=== PATIENT | male | born 1950 | race Caucasian/White ===

== ENCOUNTER → 2018-07-04 08:13 | Outpatient (CLI) | payer MEDICARE, SELFPAY ==
[2015-07-01 06:20] VITALS: BMI 24.8
[2018-07-04 10:37] LABS: Anion Gap 6 (5-15); BUN 13 mg/dL (7-18); BUN/Creat Ratio 16.5 RATIO (10-20); Calcium,Total 8.7 mg/dL (8.5-10.1); Chloride 110 mmol/L (98-107); Cholesterol 160 mg/dL (200); Creatinine, Serum 0.79 mg/dL (0.70-1.30); EST Glomerular Filtration Rate 104 mL/min (>60); Est Glom Filt Rate - Afr Amer 126 mL/min (>60); Glucose 96 mg/dL (74-106); High Density Lipoprotein 70 mg/dL; PSA,Total - Annual Screen 0.15 ng/mL (0.00-4.00); Potassium 4.1 mmol/L (3.5-5.1); Sodium Level 142 mmol/L (136-145); Triglycerides 63 mg/dL; Very Low Density Lipoprotein 13 mg/dL (5-40)
[2018-07-04 10:46] LABS: Vitamin D,25 Hydroxy 28.9 ng/mL (29.95-100.01)
== END ==
PROVIDERS: Family Provider Family Medicine; PCP Family Medicine; Visit Provider Family Medicine
DX: Z00.00 Encounter for general adult medical examination without abnormal findings (principal)
CPT/HCPCS: 36415; 80048; 80061; 82306; 84153; G0103

== ENCOUNTER → 2018-07-11 08:37 | Outpatient (CLI) | payer MEDICARE, SELFPAY ==
--- NOTE | 2018-07-11 08:44 | RAD_ITS ---
STUDY: X-RAY - LEFT SHOULDER REASON FOR EXAM: Male, 67 years old. Chronic pain. TECHNIQUE: 4 view(s) of the shoulder. COMPARISON: None. FINDINGS: There is moderate degenerative arthrosis of the glenohumeral articulation. There is degenerative arthrosis of the acromioclavicular joint without inferior osseous spur formation. Normal acromion. There is demineralization of the humerus and visualized osseous structures. The soft tissue structures are unremarkable. Normal visualized pulmonary apex. RAD/Shoulder min 2 Views IMPRESSION: Moderate glenohumeral joint arthrosis with arthrosis of the AC joint, otherwise no evidence of acute osseous abnormality. Electronically Signed: Tan Ruiz DO at 9:28 EST , Service support ,
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
== END ==
PROVIDERS: Family Provider Family Medicine; PCP Family Medicine; Referring Provider Family Medicine; Visit Provider Family Medicine
DX: M25.512 Pain in left shoulder (principal)
CPT/HCPCS: 73030

== ENCOUNTER → 2018-09-19 08:44 | Outpatient (CLI) | payer MEDICARE, SELFPAY ==
[2018-09-19 10:04] LABS: Absolute Lymphocyte Count 1.11 X10^3/ul (0.83-4.51); Absolute Neutrophil Count 2.5 X10^3/uL (2.0-7.7); Basophil# 0.03 X10^3/uL; Basophil% 0.7 % (0-1); Eosinophils% 2.4 % (0-5); Hematocrit 45.3 % (40-54); Hemoglobin 15.4 g/dl (13.0-16.5); Lymphocyte # 1.11 X10^3/ul (4.0); Lymphocyte % 26.5 % (19-41); Mean Corpuscular Hgb 33.4 pg (27.0-32.0); Mean Corpuscular Volume 98.3 fL (80-94); Mean Platelet Vol. 11.3 fl (6.2-12.0); Monocyte# 0.49 X10^3/uL; Monocyte% 11.7 % (0-10); Neutrophil # 2.46 X10^3/uL (2.7-7.7); Neutrophil % 58.7 % (47-70); Platelet Count 181 K/mm3 (150-450); RBC Distribution Width CV 14.4 % (11.6-14.6); RBC Distribution Width SD 51.1 fl (35.1-43.9); Red Blood Count 4.61 M/mm3 (4.6-6.2); White Blood Count 4.2 K/mm3 (4.4-11.0)
[2018-09-19 10:05] LABS: POSITIVE COUNT NO; POSITIVE DIFFERENTIAL NO; POSITIVE MORPHOLOGY NO
[2018-09-19 10:23] LABS: Anion Gap 9 (5-15); BUN 17 mg/dL (7-18); BUN/Creat Ratio 23.2 RATIO (10-20); Calcium,Total 8.8 mg/dL (8.5-10.1); Chloride 110 mmol/L (98-107); Cholesterol 163 mg/dL (200); Creatinine, Serum 0.73 mg/dL (0.70-1.30); EST Glomerular Filtration Rate 114 mL/min (>60); Est Glom Filt Rate - Afr Amer 137 mL/min (>60); Glucose 105 mg/dL (74-106); High Density Lipoprotein 75 mg/dL; Potassium 4.4 mmol/L (3.5-5.1); Sodium Level 144 mmol/L (136-145); Triglycerides 51 mg/dL; Very Low Density Lipoprotein 10 mg/dL (5-40)
== END ==
PROVIDERS: Family Provider Family Medicine; PCP Family Medicine; Referring Provider Family Medicine; Visit Provider Family Medicine
DX: Z00.00 Encounter for general adult medical examination without abnormal findings (principal)
CPT/HCPCS: 36415; 80048; 80061; 85025

== ENCOUNTER 2018-10-01 07:19 | Inpatient (IN) | payer MEDICARE, SELFPAY ==
[2015-07-01 06:20] VITALS: BMI 24.8
[2018-09-22 13:22] VITALS: BP 156/90; PULSE 65; RESP 16; TEMP 36.9; O2SAT 98; BMI 25.8
[2018-09-22 14:28] LABS: AST(SGOT) 31 U/L (15-37); Alanine Aminotransfer ALT/SGPT 33 U/L (16-61); Albumin, Serum 4.1 g/dL (3.2-5.0); Alkaline Phosphatase 59 U/L (45-117); Bilirubin, Direct 0.16 mg/dL (0.00-0.30); Globulin 4.1 g/dL (2.2-4.2); Protein, Total 8.2 g/dL (6.4-8.2)
[2018-09-22 14:56] LABS: Prothrombin Time (Protime)PT. 13.2 SECONDS (11.7-14.9)
[2018-09-22 14:57] LABS: Partial Thromboplast Time 32.5 Seconds (24.1-36.2)
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
[2018-10-01] VITALS (11 sets, daily range): BP systolic 110–141; BP diastolic 59–81; PULSE 52–68; RESP 14–18; TEMP 36.3–36.7; O2SAT 92–99; BMI 25.8
--- NOTE | 2018-10-01 07:12 | RAD_ITS ---
STUDY: X-RAY - LEFT SHOULDER REASON FOR EXAM: Male, 67 years old. Total shoulder arthroplasty. TECHNIQUE: 1 portable view(s) of the shoulder. COMPARISON: Frontal and lateral views of left shoulder July 11, 2018. FINDINGS: The patient has undergone left shoulder arthroplasty. Following resection of the humeral head, and metal prosthesis was placed, a stem extending into the proximal humeral diaphysis. There is mild irregularity at the glenoid of the scapula related to radiolucent prosthesis at that site. The glenohumeral alignment is maintained. There is degenerative arthrosis of the acromioclavicular joint without inferior osseous spur formation. Normal acromion. Gas lucencies in the soft tissues overlapping the shoulder consistent with recent surgery. There is no demonstrated fracture. The left lung is poorly expanded, and there is mild basilar subsegmental atelectasis. RAD/Shoulder One View IMPRESSION: 1. Status post left total shoulder arthroplasty, as noted. 2. Degenerative arthrosis of the left acromioclavicular joint. 3. Poor inspiratory effort with left base subsegmental atelectasis. Electronically Signed: Jose Guadalupe Weiss MD at 16:28 EST , Service support ,
[2018-10-01] MEDS: Acetaminophen 500 MG Tablet 1000 MG PO ×3 (08:02→22:53)
[2018-10-01] MEDS: Celecoxib 200 MG Capsule 400 MG PO (08:03)
[2018-10-01] MEDS: oxyCODONE HCl Cr 10 MG Tablet PO (08:04)
[2018-10-01] MEDS: Lactated Ringers 1,000 ML 999 ML IV (08:19)
[2018-10-01] MEDS: Cefazolin 2 GM in 0.9% Normal Saline 100 ML IV (09:47)
[2018-10-01] MEDS: Scopolamine 1mg/72hr Patch 1 PATCH TD (12:34)
--- NOTE | 2018-10-01 13:31 | PCM.OPRPT ---
Report of Operation Date of Procedure: 10/01/18 Pre-Operative Diagnosis: Left shoulder primary glenohumeral osteoarthritis Post-Operative Diagnosis: Left shoulder primary glenohumeral osteoarthritis Surgery/Procedure Performed:: Left anatomic total shoulder replacement Description of Surgical Findings:: Stable shoulder well repaired lesser tuberosity osteotomy. catia designer: Alyce Lopez Type of Anesthesia:: General Anesthesiologist: Chaz Hammond Special Medications: 2 g Ancef, 1 g TXA at incision, 1 g TXA closure, 10 mg Decadron, joint cocktail (5 mg Duramorph, 30 mL of 0.5% Ropivicaine, 1000 units of epinephrine, 30 mg of Toradol), vancomycin IV Specimen's removed: Bony cuts Estimated Blood Loss (mL): 150 Fluids Replaced: 1400 mL crystalloid Description of Procedure: Components used 1. Equinox glenoid 48 2. Equinox 48 mm eccentric, 18 mm humeral head 4. Equinox humeral stem primary press-fit 13mm size Brief history/Operative indications: 67 yo M with history of left shoulder primary glenohumeral osteoarthritis. Patient failed conservative measures as mentioned in the H&P. After discussion of risk and benefits of reverse total shoulder replacement including but not limited to blood loss, DVTs, PEs, nerve vessel damage, infection, general risk of anesthesia including loss of life, instability and stiffness patient demonstrating understanding wish to proceed was able to sign informed consent. Medical clearance was obtained. Procedure: On the date of the procedure, patient's L upper extremity was marked in the preoperative area. Patient was taken back to the operating room where they were placed on the table in the supine position. Anesthesia assumed control of the C-spine and airway, then administered anesthetic. All bony prominences were identified well-padded, the head was secured and the patient was placed in the beachchair position at about 35? inclination. Anesthesia remained in control of the C-spine airway throughout the remainder of the procedure. Patient was then appropriately fastened to the table and the L upper extremity was prepped in a sterile fashion. The surgeons then scrubbed. Upon reentering the room, the L upper extremity was draped in a sterile fashion and the incision was marked out. Timeout was called, everyone agreed upon the side, the site, the procedure to be performed, patient identity and antibiotics given. Incision was taken down through skin and subcutaneous tissue, fat down to fascia. The stripe of the deltopectoral interval and cephalic vein were identified and blunt dissection was used to retract the deltoid. The cephalic vein was retracted laterally. Clavipectoral fascia was then incised and a cobra retractor was placed in the wound. The proximal one third of the pectoralis major insertion was released. Pectoralis tendon insertion was used to tenodesed the biceps tendon which was identified in the bicipital groove. Tenodesis was done with #1 Vicryl. Proximally we followed the biceps tendon after transecting it into the rotator interval. The rotator interval was split and the arm was externally rotated. Bicipital groove was identified and an osteotome was used to perform a lesser tuberosity osteotomy which was tagged with FiberWire. We released down the anterior portion of the humeral head and a elizabeth elevator was used to release the inferior portion of the humeral head. The arm was externally rotated and the shoulder was dislocated. The Karisma Kidz humeral head cutting guide was used to make humeral cut. This was done even with the articular surface. Once his humeral head cut was made humerus was retracted out of the way and the glenoid was exposed. After exposing the glenoid, the labrum and the remaining proximal biceps were debrided. At this time we are able to view the entire outer edge of the glenoid. A central pin was placed we sequentially reamed over this central pin to 48. Once this was completed the central pedicle was drilled. Wound was closely irrigated out with normal saline we then drilled sequentially for the coinciding 3 peg holes. Once these were drilled graft was placed into the central peg of the glenoid and the glenoid was impacted into place. The glenoid was secure we directed our attention to the humerus The humerus was again externally rotated exposing the proximal portion of the humerus. Central canal finder was then used to open up the canal. We reamed to a 43mm reamer. We then broached to a 13mm stem. With the eccentric 48 x 18 mm humeral head. We obtained an adequate reduction at this time with a nice stable shoulder. Good internal rotation to the gluteus, forward elevation to 140?, external rotation to 20? and 50% posterior translation. Final components were then assembled on the back table, trials were removed and the wound was copiously irrigated with normal saline after dislocating the shoulder. Once the final components were assembled they were impacted into place. Shoulder was then reduced and found to be stable with good range of motion. Subscapularis tendo. The wound was irrigated with a 1 L of normal saline lavage. The deltopectoral fascia was then closed using #1 Vicryl skin was closed using 2-0 Vicryl interrupted sutures and final skin closure was done with 3-0 Monocryl. Steri-Strips are placed for final skin closure. Sterile dressing was placed patient was then placed in a sling and awakened by anesthesia. Patient was then transferred to the PACU for recovery. Postoperative plan: Patient will be admitted to the hospital overnight. They will get physical therapy starting in 2 weeks with normal postoperative regimen. Patient will be placed on aspirin daily for DVT prophylaxis. The first postoperative appointment will be in 2 weeks for wound check and initiation of phase 1 physical therapy. Grafts/Implants Used: Sutton reunion - Complications No intraoperative complications - Admit VTE Documentation VTE Present on Admission: No VTE Mechan Device Prophylaxis: SCD's, Thigh High WARREN Hose VTE Pharm Prophylaxis ordered?: Yes
[2018-10-01] MEDS: Aspirin 325 MG Tablet PO (15:46)
--- NOTE | 2018-10-01 16:50 | PCM.PN.HOSP ---
Subjective: Follow-up alcohol use. Is a 37-year-old white male who underwent left shoulder replacement by Dr. Hopkins. Otherwise feeling good still has some numbness in the shoulder. Concern for the orthopedic team was for alcohol abuse and withdrawal. Patient states that he stopped drinking 2 days ago prior to surgery and has no concerns at this time no symptoms. Patient states that normally drinks around a sixpack of beer per day but can go days without drinking with out any problems. He denies any history of withdrawal symptoms or delirium tremens. Vitals/I&O's: Vital Signs Temp Pulse Resp BP Pulse Ox 36.7 C 65 14 112/62 95 10/01/18 15:37 10/01/18 15:37 10/01/18 15:37 10/01/18 15:37 10/01/18 15:37 Oxygen Flow Rate (L/min) 2 Oxygen Delivery Method Nasal Cannula Weight: 88.9 kg Body Mass Index (BMI) 25.8 Intake and Output for Last 24 Hours 09/29/18 09/30/18 10/01/18 23:59 23:59 23:59 Intake Total 1999 Balance 1999 General: Alert, Cooperative, No apparent distress HEENT: Atraumatic, Normocephalic Oral: Moist Mucosa, No Gingival or Mucosal Lesions/ Ulcerations Neck: No Nodes, Thyroid Normal Size and Texture Lungs: Clear to auscultation, Normal air movement, No rhonchi, No wheeze Cardiovascular: Regular rate, Regular Rhythm, Normal S1, Normal S2, No murmurs Abdomen: Bowel Sounds Present, Soft, Non Tender, Non-Distended, No Hepato-splenomegaly Extremities: - - Left upper extremity in sling and bandaged, did not remove. Skin: No rashes, No breakdown Psych/Mental Status: Normal Affect, Appropriate Current Medications Acetaminophen (Tylenol) 1,000 mg PO Q8 [facility] Last Admin: 10/01/18 15:44 Dose: 1,000 mg Aspirin (Aspirin) 325 mg PO DAILY@0800 [facility] Last Admin: 10/01/18 15:46 Dose: 325 mg Cholecalciferol (Vitamin D) 1,000 unit PO DAILYCM [facility] Cefazolin Sodium () 1 gm in 50 mls @ 150 mls/hr IV Q8H [facility] Stop: 10/02/18 02:19 Lactated Ringer's () 1,000 mls @ 125 mls/hr IV .Q8H [facility] Ketorolac Tromethamine (Toradol) 15 mg IV Q6H PRN PRN PRN Reason: PAIN Morphine Sulfate () 2 - 4 mg IV Q2H PRN PRN PRN Reason: Severe pain (6-10) Morphine Sulfate () 2 - 4 mg IV Q2H PRN PRN PRN Reason: Severe pain (6-10) Nutritional Formula (Lactose Free) (Ensure Enlive) 120 ml PO TIDCM [facility] Last Admin: 10/01/18 15:23 Dose: Not Given Ondansetron HCl (Zofran) 4 mg IV Q6H PRN PRN PRN Reason: Nausea Oxycodone HCl (Oxyir) 5 - 10 mg PO Q4H PRN PRN PRN Reason: PAIN Promethazine HCl (Phenergan) 12.5 mg IV Q6H PRN PRN PRN Reason: NAUSEA/VOMITING Scopolamine HBr (Transderm-Scop) 1 patch TD Q3D [facility] Last Admin: 10/01/18 12:34 Dose: 1 patch Sodium Chloride () 5 - 15 ml IV UD PRN PRN Reason: SALINE FLUSH Medical Necessity - Tobacco Use Smoking Status: Current every day smoker Tobacco Use: Cigarettes Assessment/Plan 1. Alcohol use: Would not qualify this is alcohol abuse. Patient last drink was over 48 hours ago and he has no signs or symptoms of withdrawal at this time. Can start him on a multivitamin, however. 2. Status post left shoulder replacement: Management per orthopedics. 3. DVT prophylaxis: Patient on aspirin as directed by the orthopedic team. Thank you for the consult the hospitalist team will follow during the course of this hospitalization. Please contact with any questions in the interim. Code Visit Inpatient E&M: 02025 Subs Hosp L2
--- NOTE | 2018-10-01 16:55 | PN_ITS ---
Subjective: Follow-up alcohol use. Is a 37-year-old white male who underwent left shoulder replacement by Dr. Hopkins. Otherwise feeling good still has some numbness in the shoulder. Concern for the orthopedic team was for alcohol abuse and withdrawal. Patient states that he stopped drinking 2 days ago prior to surgery and has no concerns at this time no symptoms. Patient states that normally drinks around a sixpack of beer per day but can go days without drinking with out any problems. He denies any history of withdrawal symptoms or delirium tremens. Vitals/I&O's: Vital Signs Temp Pulse Resp BP Pulse Ox 36.7 C 65 14 112/62 95 10/01/18 15:37 10/01/18 15:37 10/01/18 15:37 10/01/18 15:37 10/01/18 15:37 Oxygen Flow Rate (L/min) 2 Oxygen Delivery Method Nasal Cannula Weight: 88.9 kg Body Mass Index (BMI) 25.8 Intake and Output for Last 24 Hours 09/29/18 09/30/18 10/01/18 23:59 23:59 23:59 Intake Total 1999 Balance 1999 General: Alert, Cooperative, No apparent distress HEENT: Atraumatic, Normocephalic Oral: Moist Mucosa, No Gingival or Mucosal Lesions/ Ulcerations Neck: No Nodes, Thyroid Normal Size and Texture Lungs: Clear to auscultation, Normal air movement, No rhonchi, No wheeze Cardiovascular: Regular rate, Regular Rhythm, Normal S1, Normal S2, No murmurs Abdomen: Bowel Sounds Present, Soft, Non Tender, Non-Distended, No Hepato- splenomegaly Extremities: - - Left upper extremity in sling and bandaged, did not remove. Skin: No rashes, No breakdown Psych/Mental Status: Normal Affect, Appropriate Current Medications Acetaminophen (Tylenol) 1,000 mg PO Q8 [facility] Last Admin: 10/01/18 15:44 Dose: 1,000 mg Aspirin (Aspirin) 325 mg PO DAILY@0800 [facility] Last Admin: 10/01/18 15:46 Dose: 325 mg Cholecalciferol (Vitamin D) 1,000 unit PO DAILYCM [facility] Cefazolin Sodium () 1 gm in 50 mls @ 150 mls/hr IV Q8H [facility] Stop: 10/02/18 02:19 Lactated Ringer's () 1,000 mls @ 125 mls/hr IV .Q8H [facility] Ketorolac Tromethamine (Toradol) 15 mg IV Q6H PRN PRN PRN Reason: PAIN Morphine Sulfate () 2 - 4 mg IV Q2H PRN PRN PRN Reason: Severe pain (6-10) Morphine Sulfate () 2 - 4 mg IV Q2H PRN PRN PRN Reason: Severe pain (6-10) Nutritional Formula (Lactose Free) (Ensure Enlive) 120 ml PO TIDCM [facility] Last Admin: 10/01/18 15:23 Dose: Not Given Ondansetron HCl (Zofran) 4 mg IV Q6H PRN PRN PRN Reason: Nausea Oxycodone HCl (Oxyir) 5 - 10 mg PO Q4H PRN PRN PRN Reason: PAIN Promethazine HCl (Phenergan) 12.5 mg IV Q6H PRN PRN PRN Reason: NAUSEA/VOMITING Scopolamine HBr (Transderm-Scop) 1 patch TD Q3D [facility] Last Admin: 10/01/18 12:34 Dose: 1 patch Sodium Chloride () 5 - 15 ml IV UD PRN PRN Reason: SALINE FLUSH Medical Necessity - Tobacco Use Smoking Status: Current every day smoker Tobacco Use: Cigarettes Assessment/Plan 1. Alcohol use: Would not qualify this is alcohol abuse. Patient last drink was over 48 hours ago and he has no signs or symptoms of withdrawal at this time. Can start him on a multivitamin, however. 2. Status post left shoulder replacement: Management per orthopedics. 3. DVT prophylaxis: Patient on aspirin as directed by the orthopedic team. Thank you for the consult the hospitalist team will follow during the course of this hospitalization. Please contact with any questions in the interim. Code Visit Inpatient E&M: 71804 Subs Hosp L2
[2018-10-01] MEDS: Cefazolin 1 GM/50 ML BAG IV (18:01)
[2018-10-01] MEDS: Lactated Ringers 1,000 ML 125 ML IV (18:02)
[2018-10-02] MEDS: Lactated Ringers 1,000 ML 125 ML IV (01:27)
[2018-10-02] MEDS: Cefazolin 1 GM/50 ML BAG IV (01:27)
[2018-10-02] MEDS: 0.9% NaCl Peripheral Flush Adult/Peds IV (01:31)
[2018-10-02] MEDS: Ketorolac 15 MG/ML Vial IV (01:31)
[2018-10-02 02:05] VITALS: BP 124/73; PULSE 55; RESP 18; TEMP 36.8; O2SAT 99
[2018-10-02] MEDS: oxyCODONE 5 MG Tablet PO (06:32)
[2018-10-02] MEDS: Acetaminophen 500 MG Tablet 1000 MG PO (06:33)
[2018-10-02] MEDS: Aspirin 325 MG Tablet PO (07:54)
[2018-10-02] MEDS: Multivitamins,Therapeutic Tablet 1 TABLET PO (07:56)
[2018-10-02 07:58] VITALS: BP 147/80; PULSE 60; RESP 16; TEMP 36.3; O2SAT 99
--- NOTE | 2018-10-02 09:40 | PN.ORTHO_ITS ---
Subjective: The patient was sitting in bedside chair upon examination. Patient denies any chest pain, shortness of breath, dizziness, lightheadedness, nausea or vomiting, or calf pain. Pain is controlled on medications. No adverse overnight events. Overall patient is doing well and wishes to go home. I did discuss case with the hospitalist with regards to patient's alcohol use and current medications. Objective: Vital signs stable, afebrile Dressing is clean, dry, intact Ultra-sling fitting appropriately Sensation intact to axillary, radial, median, and ulnar distribution Motor intact to AIN, PIN, and ulnar nerve - Physical Exam General: Alert, Oriented x3, Cooperative, No apparent distress Vital Signs Temp Pulse Resp BP Pulse Ox 97.3 F L 60 16 147/80 H 99 10/02/18 07:58 10/02/18 07:58 10/02/18 07:58 10/02/18 07:58 10/02/18 07:58 Oxygen Flow Rate (L/min) 2 Oxygen Delivery Method Room Air Weight: 88.9 kg Body Mass Index (BMI) 25.8 Intake and Output for Last 24 Hours 09/30/18 10/01/18 10/02/18 23:59 23:59 23:59 Intake Total 3011 / 3011 1433 / 1433 Output Total 600 / 600 600 / 600 Balance 2411 / 2411 833 / 833 Medical Necessity - Tobacco Use Smoking Status: Current every day smoker Tobacco Use: Cigarettes Assessment/Plan 1. S/P left anatomic total shoulder arthroplasty POD #1 2. Continue Pain Medications: Oxycodone. Tylenol was discontinued due to patient's alcohol use. Discussed pain medications with hospitalist and recommends only oxycodone at this time. Hospitalist did talk with the patient with regards to medications. 3. DVT Prophylaxis: Aspirin 325 mg once daily for 2 weeks postoperatively 4. PT/OT: Continue with UltraSling, no range of motion left shoulder. Okay to come out of UltraSling to work on elbow, wrist, hand range of motion only. 5. Encouraged Incentive Spirometry 6. Disposition: Orthopedically stable, plan will be for discharge home today. Narcotic prescription will be E scribed to [facility]. Patient will follow-up per postop instructions.
--- NOTE | 2018-10-02 09:48 | DCINST_ITS ---
Discharge Diet: No Restrictions Discharge Activity: May Not Drive May shower in (days): 1 Ice area for (Minutes): 20 - Turned dressing away from water every 1-2 hours while awake ice area for 20 minutes each hour while awake Weight Bearing Status: No weight bearing - Left upper extremity Call your doctor if your incision/area has: Continuous Slow Oozing, Sudden Increased Bleeding, Increased Pain/ Swelling, Increased Redness, Foul Smelling Discharge Call your doctor if you observe: Fever of 101 or Higher, Coldness, Increased Pain, Numbness or Tingling, Change in Color Remove Dressing in (days):: 4 - Okay to remove on October 06, 2018 Additional Instructions: Follow [facility] postop instructions Continue with UltraSling for the left upper extremity at all times. You can come out 3-4 times a day to work only on elbow, wrist, hand range of motion. No range of motion of the left shoulder. Must sleep in the UltraSling. No driving while in the UltraSling. Allergies/Adverse Reactions: Allergies No Known Allergies Allergy (Verified 09/22/18 13:10) Medications to take at Discharge Cholecalciferol (VIT D3) [Vitamin D3] 1,000 unit PO DAILY 09/22/18 Aspirin 325 mg PO DAILY@0800 #13 tablet 10/02/18 Oxycodone [Oxyir] 5 - 10 mg PO Q4H PRN PRN 4 Days #45 tablet 10/02/18 The following prescriptions were given: Oxycodone [Oxyir] 5 - 10 mg PO Q4H PRN PRN 4 Days #45 tablet PRN Reason: Pain Aspirin 325 mg PO DAILY@0800 #13 tablet Primary Care Physician: Mik Whitten MD [Primary Care Provider] - Test Results: Test results from this visit will be discussed in further detail at your follow- up appointment, if applicable. Please Follow Up With: Carlos A Escobar PA-C When: 10/15/18 @ 8:15 am Please Follow Up With: [facility] When: 10/15/18 @ 9:00 am
--- NOTE | 2018-10-02 10:05 | PCM.PN.HOSP ---
Subjective: Feels well, the pain in the shoulder is controlled. He denies any agitation or tremors. And acknowledges that he drinks 8 beers a day though with over the course of the day and he has never gone through withdrawal. Vitals/I&O's: Vital Signs Temp Pulse Resp BP Pulse Ox 97.3 F L 60 16 147/80 H 99 10/02/18 07:58 10/02/18 07:58 10/02/18 07:58 10/02/18 07:58 10/02/18 07:58 Oxygen Flow Rate (L/min) 2 Oxygen Delivery Method Room Air Weight: 195 lb 15.855 oz Body Mass Index (BMI) 25.8 Intake and Output for Last 24 Hours 09/30/18 10/01/18 10/02/18 23:59 23:59 23:59 Intake Total 3011 / 3011 1433 / 1433 Output Total 600 / 600 600 / 600 Balance 2411 / 2411 833 / 833 General: Alert, Oriented x3, Cooperative, No apparent distress HEENT: Atraumatic, PERRLA, EOMI, Normocephalic Neck: Supple, No JVD, Trachea Midline Lungs: Clear to auscultation, Normal air movement, No rhonchi, No wheeze, No rales Cardiovascular: Regular rate, Regular Rhythm, Normal S1, Normal S2, No murmurs Abdomen: Soft, Non Tender, Non-Distended, No Hepato-splenomegaly Extremities: No edema, Capillary Refill Less than 3 Seconds Skin: Incision - Dressing intact Musculoskeletal: - - Left shoulder in a sling Neurological: Neuro grossly intact, Sensory exam intact to light touch and pain - Slight numbness in his left fingertips though improved Psych/Mental Status: Normal Affect, Appropriate Medical Necessity - Tobacco Use Smoking Status: Current every day smoker Tobacco Use: Cigarettes Assessment/Plan 1. Total shoulder arthroplasty postop day 1 -Doing well with pain control, discussed with him that he should not take Tylenol while he drinks -No driving while he is taking narcotics and drinking -Stable for discharge home 2. Alcohol use -This is never gone through withdrawal -And he has not had a drink since Saturday and is still doing okay -No intentions of quitting 3. Tobacco use -Encouraged cessation which she does not want to do DVT: Aspirin 325 mg daily for 2 weeks Code Visit Inpatient E&M: [id number] Subs Hosp L2
== END 2018-10-02 10:02 | disposition home or self-care (01) | DRG 483 ==
PROVIDERS: Anesthesiology; Admitting Provider Specialist; Family Provider Family Medicine; PCP Family Medicine; Referring Provider Specialist; Visit Provider Family Medicine
PROC: 0RRK0JZ Replacement of Left Shoulder Joint with Synthetic Substitute, Open Approach (ICD-10-PCS; CPT 23472; principal; 2018-10-01 09:30)
DX: M19.012 Primary osteoarthritis, left shoulder (principal); Z72.89 Other problems related to lifestyle; F17.210 Nicotine dependence, cigarettes, uncomplicated
CPT/HCPCS: 73020; 80076; 85610; 85730; 87081; 94762; 97165; C1776; J7050; J7120; A4216; J2405

== ENCOUNTER → 2019-11-16 11:08 | Outpatient (CLI) | payer MEDICARE, SELFPAY ==
[2018-10-01 13:48] VITALS: BMI 25.8
[2019-11-16 15:16] LABS: Anion Gap 6 (5-15); BUN 15 mg/dL (7-18); BUN/Creat Ratio 18.9 RATIO (10-20); Calcium,Total 8.9 mg/dL (8.5-10.1); Chloride 107 mmol/L (98-107); EST Glomerular Filtration Rate 103 mL/min (>60); Est Glom Filt Rate - Afr Amer 125 mL/min (>60); Glucose 90 mg/dL (74-106); PSA,Total - Annual Screen 0.25 ng/mL (0.00-4.00); Potassium 4.1 mmol/L (3.5-5.1); Sodium Level 140 mmol/L (136-145)
== END ==
PROVIDERS: PCP Family Medicine; Referring Provider Family Medicine; Visit Provider Family Medicine
DX: Z00.00 Encounter for general adult medical examination without abnormal findings (principal); Z12.5 Encounter for screening for malignant neoplasm of prostate
CPT/HCPCS: 36415; 80048; 84153; G0103

== ENCOUNTER → 2020-03-24 | Outpatient (CLI) | payer MEDICARE, SELFPAY ==
[2018-10-01 13:48] VITALS: BMI 25.8
== END | disposition home or self-care (01) ==
PROVIDERS: PCP Family Medicine; Referring Provider Family Medicine; Visit Provider Family Medicine
DX: Z20.828 Contact with and (suspected) exposure to other viral communicable diseases (principal)
CPT/HCPCS: 87635; U0003

== ENCOUNTER → 2020-04-26 07:40 | Outpatient (CLI) | payer MEDICARE, SELFPAY ==
--- NOTE | 2020-04-26 07:44 | CT_ITS ---
STUDY: CT CHEST WITH CONTRAST REASON FOR EXAM: Male, 69 years old. SOB/COUGH/CHEST PAIN X 6 MONTHS, PREV SMOKER, LT SHOULDER REPLACEMENT RADIATION DOSAGE (If Supplied By Facility): CTDIvol = ( 12.59 ) mGy, DLP = ( 647.66 ) mGycm TECHNIQUE: Transaxial imaging was performed following intravenous administration of IV 100mL Isovue-300. Multiplanar coronal and sagittal images were reformatted. Individualized dose optimization techniques were used for this CT. COMPARISON: None. FINDINGS: There is a 1.8 cm x 1.5 cm necrotic lymph node in the right axilla. Small left pleural effusion. There is evidence of infiltration in the left lower lobe suggestive of a postobstructive pneumonitis. Normal heart and pericardium. There is evidence of massive soft tissue masses in the mediastinum involving the right paratracheal region as well as the left paratracheal, precarinal and subcarinal regions. The soft tissue mass extends in to the hilar regions bilaterally with encasement of the left pulmonary artery. There is narrowing of the left mainstem bronchus and left lower lobe bronchus as well as the right interlobar bronchus. Bilateral hilar lymphadenopathy. The largest mass in the subcarinal region extending into the diaphragmatic hiatus measures 12.8 cm x 11.3 cm. There is atherosclerotic calcification of the aortic arch . There are degenerative changes of the thoracic spine. Multiple rounded soft tissue masses are seen in the omental fat in the region of the splenic hilum as well as in the andrzej hepatis and bilateral perinephric spaces. CT/Chest WITH Contrast IMPRESSION: Marked degree of the mediastinal and hilar lymphadenopathy as described with postobstructive pneumonitis in the left lower lobe. Right axillary adenopathy. Multiple rounded soft tissue masses seen in the omental region as seen in the upper abdomen especially in the region of the splenic hilum as well as in the perinephric spaces and andrzej hepatis. Electronically Signed: Hayder Zhou, at 8:43 EDT , Service support ,
[2020-04-26 07:56] LABS: CREATININE FINGERSTICK 0.9 mg/dL (0.70-1.30); EGFR FINGERSTICK > 60.0000 mL/min (>60)
== END ==
PROVIDERS: PCP Family Medicine; Referring Provider Otolaryngology; Visit Provider Otolaryngology
DX: R05 Cough (principal)
CPT/HCPCS: 71260

== ENCOUNTER → 2020-05-02 11:29 | Outpatient (CLI) | payer MEDICARE, SELFPAY ==
[2020-05-02 08:37] VITALS: BMI 25.6
[2020-05-02 11:56] LABS: Prothrombin Time (Protime)PT. 12.6 SECONDS (11.7-14.9)
[2020-05-02 11:57] LABS: Hematocrit 40.6 % (40-54); Hemoglobin 13.8 g/dL (13.0-16.5); Mean Corpuscular Hgb 33.7 pg (27.0-32.0); Mean Corpuscular Volume 99.3 fL (80-94); Mean Platelet Vol. 10.3 fl (6.2-12.0); Platelet Count 267 K/mm3 (150-450); RBC Distribution Width CV 13.8 % (11.6-14.6); Red Blood Count 4.09 M/mm3 (4.6-6.2); White Blood Count 6.6 K/mm3 (4.4-11.0)
== END ==
PROVIDERS: PCP Family Medicine; Referring Provider Internal Medicine Critical Care Medicine; Visit Provider Internal Medicine Critical Care Medicine
DX: Z98.890 Other specified postprocedural states (principal); F17.211 Nicotine dependence, cigarettes, in remission
CPT/HCPCS: 36415; 85027; 85610

== ENCOUNTER 2020-05-06 10:46 | Day surgery (SDC) | payer MEDICARE, SELFPAY ==
[2020-05-02 08:37] VITALS: BMI 25.6
--- NOTE | 2020-05-04 09:05 | HP.PCM_ITS ---
History of Present Illness Date of Admission: 05/06/20 Chief Complaint: Lung mass/mediastinal adenopathy The patient is a 69-year-old male who initially presented to the pulmonary medicine clinic earlier this week for the evaluation of a lung mass. The patient was just recently evaluated by Dr. Andrews of ENT after he was referred there by his PCP due to the presence of a cough and chronic sinus congestion. The patient does have a 86-bvbq-vuhh smoking history, having quit completely in January 2020. His cough is essentially dry and nonproductive in nature. In addition to his personal smoking history, the patient does report having grown up in a smoking household. 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 The patient also reported a history of alcoholism, which is currently in remission for the last 1.5 years. As part of his work-up by his ENT provider, a CT chest with contrast was obtained on April 26, 2020. That imaging study revealed a large mediastinal mass encompassing the paratracheal regions and extending into the subcarina and bilateral hilar regions, left greater than right with extrinsic compression of the left mainstem bronchus. Past Medical History Medical History: Medical History (Last Reviewed 05/02/20 @ 10:27 by Cathie Villela) Hearing loss (Acute) H91.90 Sleep apnea (Acute) G47.30 Allergies No Known Allergies Allergy (Verified 05/02/20 10:26) Home Medications: Ambulatory Orders Medication Instructions Recorded NK 04/29/20 Surgical History: Surgical History (Last Reviewed 05/02/20 @ 10:27 by Cathie Villela) H/O shoulder surgery (Resolved) Z98.890 H/O hernia repair (Resolved) Z98.890, Z87.19 Smoking Status: Former smoker Review of Systems Constitutional: Denies: Chills, Fever, Weight Change HEENT: Denies: Head Aches, Sinus Congestion, Sinus Drainage Cardiovascular: Denies: Chest Pain, Palpitations Respiratory: Reports: Cough, Shortness of Breath Gastrointestinal: Denies: Abdominal Pain, Nausea, Vomiting Genitourinary: Denies: Dysuria Musculoskeletal: Denies: Joint Pain, Joint Tenderness Skin: Denies: Rash, Wounds Neurological: Denies: Numbness, Tingling, Focal weakness Psychiatric: Denies: Anxiety, Depression, Homicidal Ideations, Suicidal Ideations Hematologic/ Lymphatic: Denies: Easy Bruising, Easy Bleeding VTE Information - Inpt Only VTE Present on Admission: No VTE Mechan Device Prophylaxis: None VTE Pharm Prophylaxis ordered?: No Reason prophylaxis not ordered:: Treatment Not Indicated - Physical Exam Vitals/I&O's: Body Mass Index (BMI) 25.6 General: Alert, Oriented x3, Cooperative HEENT: Atraumatic, PERRLA, EOMI, Normocephalic Neck: Supple, No JVD, Negative Carotid Bruits Lungs: Diminished Cardiovascular: Regular rate, No murmurs Abdomen: Bowel Sounds Present, Soft, Non Tender Extremities: No edema, Capillary Refill Less than 3 Seconds Skin: No rashes, No breakdown Musculoskeletal: No Tenderness to Palpation of Joints or Extremities Neurological: Cranial nerves II-XII grossly intact Psych/Mental Status: Normal Affect, Appropriate Assessment/Plan All Active Problems (Last Reviewed 05/02/20 @ 10:27 by Cathie Villela) H/O shoulder surgery (Resolved) H/O hernia repair (Resolved) Hearing loss (Acute) Sleep apnea (Acute) Assessment & Plan 1. Lung mass R91.8 Plan The patient has evidence of a large mediastinal lung mass/adenopathy involving the paratracheal, subcarinal and hilar regions with evidence of extrinsic compression of the left tracheobronchial tree noted. These findings, coupled with the patient's smoking history, certainly concerning for underlying malignancy. The patient was subsequently consented for bronchoscopy with plans to perform an EBUS with TBNA. Risks and benefits were reviewed. Questions were answered. 2. Mediastinal lymphadenopathy R59.0 Plan Management as noted above.
[2020-05-06] VITALS (9 sets, daily range): BP systolic 103–142; BP diastolic 61–84; PULSE 77–94; RESP 16–20; TEMP 36.6–37.4; O2SAT 89–98; BMI 25.1
--- NOTE | 2020-05-06 | ASPIG_PTH ---
PATIENT: GERSON CRUM LOC: EN U#:[id number] AGE/SX: 69/M ROOM: RE05/06/[address]: Dr. Isiah Mcqueen DO : 1950 BED: DIS: 05/06/2020 SPEC #: [id number] RECD: 05/06/20 13:17 STATUS: JUAN PABLO VIRGIL #: [id number] MASON: 05/06/20 00:[address]: Iisah Mcqueen DEPT: CYTOLOGY RECD BY: Gerald Egan ENTERED: 05/06/20 13:19 SP TYPE: ASP OUT OTHR DR: Dr. Mik hWitten MD Tissues: A - Lung, NOS B - Lung, NOS C - Lung, NOS D - Lung, NOS E - Lung, NOS F - Lung, NOS G - Lung, NOS H - Lung, NOS I - Lung, NOS Procedures: FNA Specimen Adequacy Special Stain Group II Surgery Specimen Level IV Cytology Other HEADER OPERATION: EBUS with TBNA PRE-OP DIAGNOSIS: Mediastinal lymphadenopathy TISSUE SUBMITTED: A - EBUS, TBNA, site 4R #1, B - EBUS, TBNA, site 4R #2, C - EBUS, TBNA, site 7 #3, D - EBUS, TBNA, site 7 #4, E - EBUS, TBNA, site 10L #5, F - EBUS, TBNA, site 10L #6, G - EBUS, TBNA, site 4R, H - EBUS, TBNA, site 7, I - EBUS, TBNA, site 10L DIAGNOSIS CYTOLOGY A. EBUS, TBNA, site 4R #1 (smears): A few malignant cells present. B. EBUS, TBNA, site 4R #2 (smears): Malignant cells present. C. EBUS, TBNA, site 7 #3 (smears): Malignant cells present. D. EBUS, TBNA, site 7 #4 (smears): Rare atypical cells noted. E. EBUS, TBNA, site 10L #5 (smears): Rare atypical cells noted. F. EBUS, TBNA, site 10L #6 (smears): Rare atypical cells noted. G. EBUS, TBNA, site 4R fluid (cell block): Poorly differentiated malignant neoplasm, favor carcinoma. The immunohistochemical profile is not specific for tumor phenotype or origin. See comment. H. EBUS, TBNA, site 7 fluid (cell block): Poorly differentiated malignant neoplasm, favor carcinoma. The immunohistochemical profile is not specific for tumor phenotype or origin. See comment. I. EBUS, TBNA, site 10L fluid (cell block): Malignant cells present. SJ:erna 05/18/20 COMMENT The specimen is evaluated at the time of the procedure by Dr. Xavier. Rapid onsite evaluation: A. EBUS, TBNA, site 4R #1: A few atypical cells suspicious for malignancy. B. EBUS, TBNA, site 4R #2: Positive for malignant cells, favor non-small cell carcinoma. Lymphoma cannot be ruled out. C. EBUS, TBNA, site 7 #3: Positive for malignant cells, favor non-small cell carcinoma. Lymphoma cannot be ruled out. D. EBUS, TBNA, site 7 #4: Negative for malignant cells. Predominantly blood. E. EBUS, TBNA, site 10L #5: Negative for malignant cells. Predominantly blood. F. EBUS, TBNA, site 10L #6: A few atypical cells suspicious for malignancy. G & H. The specimen is sent to [facility] for expert opinion and reviewed by Dr. Delgado and above diagnosis is rendered. The complete report is viewable in patient's EMR. Immunohistochemistry ([id number]) and additional immunohistochemical stains performed at [facility] supports the above diagnosis. Fluid submitted from specimen G & H for flow cytometry study shows no evidence of B or T-cell lymphoma. This case was reviewed and diagnosis discussed with Dr. Mcqueen on 05/13/20. Case has been reviewed in consultation with Dr. Jensen who concurs with the above diagnosis. IDC:AM CYTOLOGY STUDY Slides are reviewed. CYTOLOGY GROSS A - Received labeled with the patient's name and and designated EBUS, TBNA, site 4R #1. The specimen consists of two stained smears for JOSÉ (Rapid Onsite Evaluation). B - Received labeled with the patient's name and and designated EBUS, TBNA, site 4R #2. The specimen consists of two stained smears for JOSÉ. C - Received labeled with the patient's name and and designated EBUS, TBNA, site 7 #3. The specimen consists of two stained smears for JOSÉ. D - Received labeled with the patient's name and and designated EBUS, TBNA, site 7 #4. The specimen consists of two stained smears for JOSÉ. E - Received labeled with the patient's name and and designated EBUS, TBNA, site 10L #5. The specimen consists of two stained smears for JOSÉ. F - Received labeled with the patient's name and and designated EBUS, TBNA, site 10L #6. The specimen consists of two stained smears for JOSÉ. G - Received in RPMI is 20 ml of pink fluid, needle rinsed fluid labeled with the patient's name and and designated EBUS, TBNA, site 4R. The specimen is submitted for cell block preparation. See note below. H - Received in RPMI is 20 ml of pink fluid, needle rinsed fluid labeled with the patient's name and and designated EBUS, TBNA, site 7. The specimen is submitted for cell block preparation. See note below. I - Received in RPMI is 20 ml of pink fluid, needle rinsed fluid labeled with the patient's name and and designated EBUS, TBNA, site 10L. The specimen is submitted for cell block preparation. / SJ:erna 05/06/20 TC:0 Note: G & H - Half of the fluid from these two specimens is combined and submitted for flow cytometry studies. CPT: 87384 x3, 07283 x3, 93880 x3, 78824 x3
--- NOTE | 2020-05-06 | IMM_PTH ---
PATIENT: GERSON CRUM LOC: EN U#:[id number] AGE/SX: 69/M ROOM: RE05/06/[address]: Dr. Isiah Mcqueen DO : 1950 BED: DIS: 05/06/2020 SPEC #: [id number] RECD: 05/09/20 09:35 STATUS: JUAN PABLO REQ #: [id number] MASON: 05/06/20 00:[address]: Isiah Mcqueen DEPT: IMMUNOHISTOCHEMISTRY RECD BY: Janette Cardozo ENTERED: 05/09/20 09:36 SP TYPE: IMMUNO OTHR DR: Dr. Mik Whitten MD Tissues: G - Lung, NOS Procedures: Synapto (add) RCC (add) SMA (add) NAPSIN A (add) CD30 (add) CD31 (add) CD34 (add) CD45 (add) CD56 (add) CHROMO (add) CK20 (add) CK5-6 (add) CK7 (add) CK8 (add) DESMIN (add) HEP PAR (add) MART1 (add) TTF1 (add) Vimentin (add) FACTOR VIII (add) Pankeratin (initial) P40 (add) PSAP (add) S-100 (add) PHYSICIAN & INSTITUTION [place] [id number] SPECIMEN INFORMATION: Tissue Source: G - EBUS, TBNA, site 4R Clinical Info: Lung mass, mediastinal lymphadenopathy Specimen Number: [id number] CPT code: 71050, 44944 x23 METHODOLOGY: Deparaffinized sections of prefer/formalin-fixed tissue or PAP/DQ stained slides are incubated with monoclonal/polyclonal antibodies/oligonucleotide probes. Localization is made via biotin free immunoperoxidase method. Appropriate controls are performed and reacted as expected. Results on target cell population are indicated in the following table: RESULTS: ANTIBODY / CLONE RESULT Block G AE1-3 (AE1/AE3/PCK26) negative CK7 (OV-TL12/30) negative CK8 (41kvpwQ36) negative CK20 (KS20.8) negative CD56 (123C3.D5) negative Chromo (LK2H10) negative Synapto (polyclonal) positive, weak TTF-1 (8G7G3/1) positive, focal Napsin A (Rabbit Polyclonal) negative HepPar (OCh1E5) negative RCC (PN-15) negative PSAP (PASE/4LJ) negative CK5-6 (D5 & 1684) negative P40 (BC28) negative CD45 (RP2/18) negative Vimentin (V9) positive, strong S-100 (4C4.9) negative MART-1 (A-103) negative Actin (1A4) negative Desmin (CE-R-11) negative CD31 (PABLITO/70A) negative Factor VIII (R Ag) negative CD34 (QBEnd-10) positive, focal CD30 (Hari-H2) negative These tests were developed and their performance characteristics determined by [facility]. They may not have been cleared or approved by the U.S. Food and Drug Administration. The FDA has determined that such clearance or approval is not necessary. The above immunohistochemical/dualISH markers are ordered and reviewed by the Pathologist. INTERPRETATION: G. EBUS, TBNA, site 4R: Poorly differentiated malignant neoplasm, favor carcinoma. See comment. NICK:erna 05/18/20 Comment: The specimen is sent to [facility] for expert opinion and reviewed by Dr. Delgado and above diagnosis is rendered. The complete report is viewable in patient's EMR. This case has been reviewed in consultation with Dr. Jensen who concurs with the above diagnosis.
[2020-05-06] MEDS: Lactated Ringers 1,000 ML 100 ML IV (11:20)
[2020-05-06] MEDS: Ipratropium/Albuterol Sulfate 3 ML AMPUL.NEB INHALATION (13:08)
--- NOTE | 2020-05-06 13:15 | OP.BRONCH_ITS ---
Patient Name: Andrzej Skaggs Procedure Date: 05/06/2020 11:56 AM Date of : 1950 Age: 69 Procedure: Bronchoscopy Indications: Mediastinal adenopathy Providers: Isiah Mcqueen MD Referring MD: Mik Whitten MD Medicines: General Anesthesia Complications: No immediate complications Procedure: Pre-Anesthesia Assessment: - A History and Physical has been performed. Patient meds and allergies have been reviewed. The risks and benefits of the procedure and the sedation options and risks were discussed with the patient. All questions were answered and informed consent was obtained. Patient identification and proposed procedure were verified prior to the procedure by the physician and the nurse in the procedure room. Mental Status Examination: alert and oriented. Airway Examination: normal oropharyngeal airway. Respiratory Examination: poor air movement. CV Examination: normal. ASA Grade Assessment: II - A patient with mild systemic disease. After reviewing the risks and benefits, the patient was deemed in satisfactory condition to undergo the procedure. The anesthesia plan was to use general anesthesia. Immediately prior to administration of medications, the patient was re-assessed for adequacy to receive sedatives. The heart rate, respiratory rate, oxygen saturations, blood pressure, adequacy of pulmonary ventilation, and response to care were monitored throughout the procedure. The physical status of the patient was re-assessed after the procedure. After I obtained informed consent, the scope was passed under direct vision. Throughout the procedure, the patient's blood pressure, pulse, and oxygen saturations were monitored continuously. The ultrasound bronchoscope was introduced through the mouth, via laryngeal mask airway and advanced to the tracheobronchial tree. The bronchoscope was introduced through the and advanced to the. The procedure was accomplished without difficulty. The patient tolerated the procedure well. Findings: The laryngeal mask airway is in good position. The vocal cords appear normal. The subglottic space is normal. The trachea is of normal caliber. The scott is sharp. The tracheobronchial tree of the right lung was examined to at least the first subsegmental level. Bronchial mucosa and anatomy are normal; there are no endobronchial lesions, and no secretions. Left Lung Abnormalities: A partially obstructing mass was found distally in the left mainstem bronchus. The mass was endobronchial and friable. The lesion was not traversed. The scope was withdrawn and replaced with the EBUS bronchoscope to accomplish the ultrasound examination. Lymph Nodes: An endobronchial ultrasound endoscope was utilized to systematically examine the right lower paratracheal region (level 4R), subcarinal mediastinum (level 7) and left hilar region (level 10L) in order to assist with fine needle aspiration. Lymph node sizing was performed via endobronchial ultrasound for suspected lung cancer. Sampling by transbronchial needle aspiration was also performed using an Olympus EBUS-TBNA 19 gauge needle in the right lower paratracheal region (level 4R), subcarinal mediastinum (level 7) and left hilar region (level 10L) and sent for routine cytology. - The 4R (lower paratracheal) node was evaluated. Four samples with the needle were obtained. - The 7 (subcarinal) node was evaluated. Two samples with the needle were obtained. - The 10L (hilar) node was evaluated. Two samples with the needle were obtained. Lymph Nodes: Rapid On-Site Evaluation (JOSÉ): Preliminary cytology was suggestive of non small cell carcinoma (final results are pending). Impression: - Mediastinal adenopathy - The airway examination of the right lung was normal. - An endobronchial and friable mass was found in the left mainstem bronchus. - Endobronchial ultrasound was performed. - Lymph node sizing and sampling was performed. - Rapid On-Site Evaluation (JOSÉ): Preliminary cytology was suggestive of non small cell carcinoma (final results are pending). Recommendation: - Await cytology results. Procedure Code(s): --- Professional --- 77318, Bronchoscopy, rigid or flexible, including fluoroscopic guidance, when performed; with endobronchial ultrasound (EBUS) guided transtracheal and/or transbronchial sampling (eg, aspiration[s]/biopsy[ies]), 3 or more mediastinal and/or hilar lymph node stations or structures 16305, Bronchoscopy, rigid or flexible, including fluoroscopic guidance, when performed; with transendoscopic endobronchial ultrasound (EBUS) during bronchoscopic diagnostic or therapeutic intervention(s) for peripheral lesion(s) (List separately in addition to code for primary procedure[s]) Diagnosis Code(s): --- Professional --- R59.0, Localized enlarged lymph nodes J98.9, Respiratory disorder, unspecified R09.89, Other specified symptoms and signs involving the circulatory and respiratory systems CPT copyright 2017 [employer]. All rights reserved. The codes documented in this report are preliminary and upon cpc review may be revised to meet current compliance requirements. DO Isiah Kemp MD 05/06/2020 1:15:16 PM This report has been signed electronically. Number of Addenda: 1 Note Initiated On: 05/06/2020 11:56 AM Addendum Number: 1 Addendum Date: 05/16/2020 12:23:56 PM Revised CPT billing code for procedure- [id number]. Please omit billing code CPT [id number] DO Isiah Kemp MD 05/16/2020 12:25:18 PM This report has been signed electronically.
--- NOTE | 2020-05-06 13:34 | SUR.PHASEI ---
AT APPROXIMATELY 15:10, DR RADHIKA FERNANDEZ STOPPED BY BEDSIDE AND SPOKE WITH THE PATIENT ABOUT THE RESULTS OF THE EBUS. HE DID TELL THE PATIENT THAT HE HAD CANCER.
[2020-05-06] MEDS: Lidocaine 2% Jelly 1 APPLIC Tube (14:14)
== END 2020-05-06 15:09 | disposition home or self-care (01) ==
LOC: EN 10:47 → AC 10:48
PROVIDERS: PCP Family Medicine; Referring Provider Family Medicine; Visit Provider Internal Medicine Critical Care Medicine
PROC: BB4BZZZ Ultrasonography of Pleura (ICD-10-PCS; CPT 31645; principal; 2020-05-06 11:30)
DX: C34.02 Malignant neoplasm of left main bronchus (principal); C77.1 Secondary and unspecified malignant neoplasm of intrathoracic lymph nodes; F10.21 Alcohol dependence, in remission; Z87.891 Personal history of nicotine dependence
CPT/HCPCS: 31645; 31653; 31654; 88161; 88172; 88305; 88313; 94640; J7120; J2405

== ENCOUNTER 2020-05-07 20:45 | Inpatient (IN) | payer MEDICARE, SELFPAY ==
[2020-05-06 11:12] VITALS: BMI 25.1
[2020-05-07] VITALS (9 sets, daily range): BP systolic 105–170; BP diastolic 70–90; PULSE 70–89; RESP 14–22; TEMP 36.6–37.7; O2SAT 90–95; BMI 29.0; BMI 25.9
--- NOTE | 2020-05-07 20:52 | EKG12_ITS ---
Test Reason : STROKEALERT Blood Pressure : / mmHG Vent. Rate : 087 BPM Atrial Rate : 087 BPM P-R Int : 140 ms QRS Dur : 150 ms QT Int : 390 ms P-R-T Axes : 066 093 023 degrees QTc Int : 469 ms Normal sinus rhythm Right bundle branch block Possible Lateral infarct , age undetermined Cannot rule out Inferior infarct (cited on or before 01-JUL-2015) Abnormal ECG Confirmed by GREY MCGOWAN, JULISSA ([id number]), mapping editor MADINA GAUTAM ([id number]) on 05/10/2020 12:37:10 PM Referred By: YOLY Confirmed By:JULISSA EDMONDS MD
--- NOTE | 2020-05-07 20:52 | RAD_ITS ---
STUDY: X-RAY CHEST REASON FOR EXAM: Male, 69 years old. Stroke. TECHNIQUE: Single AP portable view of the chest. COMPARISON: None. FINDINGS: environmental service aide leads are seen. The lungs are clear and expanded. There is no demonstrated pleural abnormality. There is cardiomegaly. There are left hilar and right mediastinal masses seen on recent CT study of 04/26/2020. Normal visualized pulmonary arteries. There are calcified plaques of the aortic arch. Normal visualized thoracic spine. Status post total left shoulder replacement changes are seen. There is a tendon anchor in the right humeral head. There is no demonstrated abnormality of the visualized soft tissue structures of the upper abdomen. RAD/Chest 1 View IMPRESSION: Left hilar and right mediastinal masses. Cardiomegaly. Calcified plaques of the aortic arch. Electronically Signed: Yariel Aiken MD at 21:57 EDT , Service support ,
--- NOTE | 2020-05-07 20:52 | CT_ITS ---
We are attempting to reach an attending provider to discuss findings. An addendum with communication details will be sent when the communication is complete. STUDY: CT BRAIN WITHOUT CONTRAST REASON FOR EXAM: Male, 69 years old. LEFT SIDE FACIAL DROOP, SLURRED SPEECH, SEVERE HUYNH, RECENT DIAGNOSIS OF LUNG CA RADIATION DOSAGE (If Supplied By Facility): CTDIvol = ( 44.99 ) mGy, DLP = ( 880.47 ) mGycm TECHNIQUE: Transaxial CT imaging of the brain was performed without administration of intravenous contrast material. Individualized dose optimization techniques were used for this CT. COMPARISON: No relevant priors. FINDINGS: Normal soft tissue structures. Normal calvarium. Normal size ventricles and extra-axial spaces for the patient''s age. Normal white matter tracts of the cerebral hemispheres. Normal basal ganglia and thalami. Normal brainstem. Normal cerebellum. There is no intracranial hemorrhage. There are no findings of an acute ischemic infarction. Normal visualized paranasal sinuses. CT/Brain/Head without Contrast IMPRESSION: Normal unenhanced CT scan of the brain. If acute infarct is clinically suspected, CTA brain and/or MRI may be helpful for further evaluation at this time. Electronically Signed: Yariel Aiken MD at 21:10 EDT , Service support ,
--- NOTE | 2020-05-07 20:52 | ED.VIS.STROK ---
History of Present Illness Chief Complaint: Neuro S/Sx Informant: Patient, Family Associated Symptoms: Headache Narrative: 69-year-old male presenting with slurred speech and left-sided facial droop which started about 745 during dinner. Patient has not had this in the past. Patient is otherwise mentating well. Said he had some right arm and leg paresthesias which have resolved. Patient was recently diagnosed with lung cancer and had biopsy done yesterday. He is not having chest pain, palpitations, shortness of breath. He is not on chemotherapy. Patient's does report that the patient drinks a couple of whiskeys hours every night and did have some tonight. Past Medical History - Allergies and Home Meds Allergies/Adverse Reactions: Allergies No Known Allergies Allergy (Verified 05/05/20 10:02) Primary Care Physician: Mik Whitten MD [Primary Care Provider] - Prior records reviewed: Yes Past Medical History: - - Sleep apnea Surgical History: no surgical history Lives: Spouse/ Significant Other Smoking Status: Unknown if ever smoked Alcohol: Occasional Drugs: None Review of Systems General: Denies: Chills, Fever, Sweats Eyes: Denies: Visual changes - bilaterally, Diplopia ENT: Denies: Rhinorrhea, Sore throat Cardiovascular: Denies: Chest pain, Palpitations Respiratory: Denies: Dyspnea, Cough, Dyspnea on exertion Gastrointestinal: Denies: Abdominal pain, Nausea, Vomiting, Diarrhea, Melena, Hematochezia Genitourinary: Denies: Dysuria, Hematuria, Frequency Musculoskeletal: Denies: Back pain, Extremity Pain Skin: Denies: Rash, Wounds Neurological: Reports: Headache, Parasthesia - Right arm and leg STROKE Inital Vital Signs reviewed: Yes General: Well nourished, Well developed Head: Normocephalic, Atraumatic Eyes: Perrl, EOMI ENT: Moist mucous membranes, No rhinorrhea Cardiovascular: Regular rate, Regular rhythm Respiratory: No distress, CTA bilaterally Extremities: Nontender, No edema Skin: Normal color, No rash Neurological: Alert, Oriented x3, Normal Sensation, - - Slight facial droop at the left side of the mouth. Slightly slurred speech. Pojuxe-xk-[id number] on the right slightly uncoordinated. NIH is 3. Negative for: Weakness Psychological: Normal affect, Normal Mood Diagnostic/Tx/Re-eval Clinical Impression(s) from Imaging Studies Brain CT 05/07/20 20:52 IMPRESSION: Normal unenhanced CT scan of the brain. If acute infarct is clinically suspected, CTA brain and/or MRI may be helpful for further evaluation at this time. Electronically Signed: Yariel Aiken MD at 21:10 EDT , Service support , ADDENDUM: 05/07/202118 IMPRESSION: Normal unenhanced CT scan of the brain. If acute infarct is clinically suspected, CTA brain and/or MRI may be helpful for further evaluation at this time. N.B. : The above information has been verbally conveyed by Yariel Aiken MD to Dr. Reji Marc DO, DO on 05/07/2020 21:12:17 (ET). Electronically Signed: Yariel Aiken MD at 21:10 EDT , Service support , Chest X-Ray 05/07/20 20:52 IMPRESSION: Left hilar and right mediastinal masses. Cardiomegaly. Calcified plaques of the aortic arch. Electronically Signed: Yariel Aiken MD at 21:57 EDT , Service support , Head/Neck CTA 05/07/20 21:16 IMPRESSION: Patent cervical and cranial arteries. Known thoracic malignancy, refer to chest imaging. N.B. : The above information has been verbally conveyed by Kathleen Kingsley to Dr. Reji Marc DO, DO on 05/07/2020 21:55:20 (ET). Electronically Signed: Kathleen Kingsley at 21:56 EDT Tel , Service support , ADDENDUM: 05/07/203 IMPRESSION: Patent cervical and cranial arteries. Known thoracic malignancy, refer to chest imaging. N.B. : The above information has been verbally conveyed by Kathleen Kingsley to Dr. Reji Marc, DO, DO, on 05/07/2020 21:55:20 (ET). Electronically Signed: Kathleen Ibrahimmaria del rosario, at 21:56 EDT Tel , Service support , Laboratory Data 05/07/20 05/07/20 05/07/20 20:47 20:47 20:47 WBC 6.0 RBC 3.66 L Hgb 12.2 L Hct 36.1 L MCV 98.6 H MCH 33.3 H MCHC 33.8 RDW Std Deviation 46.9 H RDW Coeff of Elsy 13.1 Plt Count 280 MPV 10.3 Immature Gran % (Auto) 0.300 Neut % (Auto) 70.1 H Lymph % (Auto) 17.1 L [place] % (Auto) 10.8 H Eos % (Auto) 1.2 Baso % (Auto) 0.5 Absolute Neuts (auto) 4.2 Absolute Lymphs (auto) 1.02 Nucleated RBC % 0 PT 13.1 INR 1.0 APTT 32.8 Sodium 139 Potassium 3.7 Chloride 103 Carbon Dioxide 29.0 Anion Gap 7 BUN 9 Creatinine 0.83 Estim Creat Clear Calc 97.60 Est GFR (MDRD) Af Amer 118 Est GFR (MDRD) Non-Af 98 BUN/Creatinine Ratio 10.8 Glucose 114 H Calcium 9.0 Troponin I < 0.015 Ethyl Alcohol 05/07/20 22:15 WBC RBC Hgb Hct MCV MCH MCHC RDW Std Deviation RDW Coeff of Elsy Plt Count MPV Immature Gran % (Auto) Neut % (Auto) Lymph % (Auto) [place] % (Auto) Eos % (Auto) Baso % (Auto) Absolute Neuts (auto) Absolute Lymphs (auto) Nucleated RBC % PT INR APTT Sodium Potassium Chloride Carbon Dioxide Anion Gap BUN Creatinine Estim Creat Clear Calc Est GFR (MDRD) Af Amer Est GFR (MDRD) Non-Af BUN/Creatinine Ratio Glucose Calcium Troponin I Ethyl Alcohol 3.0 - Rhythm Strip Rhythm Strip: Sinus Rhythm Rate: 87 - EKG Initial EKG Interpretation: Sinus Rhythm, RBBB - Medical Decision Making Stroke Team Activated: Yes Reviewed Inclusion/Exclusion criteria: Yes Was Patient considered for Endovascular Intervention?: Yes IV Alteplase (t-PA) Administered: No No contraindications for IV Alteplase (t-PA) administration.: Yes - Lung biopsy 24 hours previously Alteplase (t-PA) risks, benefits, alternative discussed: No Not given: Patient refusal: No Patient was seen and evaluated on arrival for strokelike symptoms. On initial exam he has an NIH of 3 for mild left-sided facial droop, slight discoordination with [id number] on the right as well as slurred speech. Patient had initial CT of the brain which was negative. [facility] telehealth did evaluate the patient and recommended CTA and if negative admit the patient for further stroke work-up. CT of the brain was negative. Patient passed swallow eval. He is given aspirin. He states he has a headache and was given Tylenol. Lab work-up was unremarkable. EKG is sinus rhythm without signs of ischemia. Patient continued complaining of headache and was given Reglan and Benadryl after evaluated by hospitalist. Patient will be admitted to the hospital in stabilized condition. Impression: 1. CVA 2. Headache ED Disposition - Plan for ED Patient: Referrals: Mik Whitten MD [Primary Care Provider] -
[2020-05-07 20:59] LABS: Absolute Lymphocyte Count 1.02 X10^3/uL (0.83-4.51); Absolute Neutrophil Count 4.2 X10^3/uL (2.0-7.7); Basophil# 0.03 X10^3/uL; Basophil% 0.5 % (0-1); Eosinophil# 0.07 X10^3/uL; Eosinophils% 1.2 % (0-5); Hematocrit 36.1 % (40-54); Hemoglobin 12.2 g/dL (13.0-16.5); Lymphocyte # 1.02 X10^3/ul (4.0); Lymphocyte % 17.1 % (19-41); Mean Corp Hgb Conc 33.8 g/dL (32-36); Mean Corpuscular Hgb 33.3 pg (27.0-32.0); Mean Corpuscular Volume 98.6 fL (80-94); Mean Platelet Vol. 10.3 fl (6.2-12.0); Monocyte# 0.64 X10^3/uL; Monocyte% 10.8 % (0-10); NRBC Flagged by Analyzer 0 % (0-5); Neutrophil # 4.17 X10^3/uL (2.7-7.7); Neutrophil % 70.1 % (47-70); Platelet Count 280 K/mm3 (150-450); RBC Distribution Width CV 13.1 % (11.6-14.6); RBC Distribution Width SD 46.9 fl (35.1-43.9); Red Blood Count 3.66 M/mm3 (4.6-6.2)
--- NOTE | 2020-05-07 21:07 | CM.ED ---
Social Work Responding to stroke alert. Patient spouse, Ruby present. Support provided. Ruby reports to this social worker palliative care that patient is an alcoholic and has a whiskey sour daily at 1:30-2:00pm daily. Ruby reports strong whiskey souse. Ruby states that patient changes to drinking whiskey 1 year ago and prior to whiskey patient was drinking a 24 pack of 12 ounce beers daily as of forever pr Ruby. Ruby also reports that patient is not on any blood thinners but that patient does bleed a lot when patient bleeds. Active support and listening provided. Updated Dr. Marc on above information. Evelin Tolbert MSW, [employer]
--- NOTE | 2020-05-07 21:16 | CT_ITS ---
STUDY: CTA HEAD AND NECK WITH CONTRAST REASON FOR EXAM: Male, 69 years old. STROKE ALERT, RIGHT SIDED WEAKNESS, SLURRED SPEECH, SUDDEN ONSET SEVERE HUYNH, RECENT DIAGNOSIS OF LUNG CA RADIATION DOSAGE (If Supplied By Facility): CTDIvol = ( 27.45 ) mGy, DLP = ( 729.43 ) mGycm TECHNIQUE: CT angiography was performed with a multi-detector CT scanner. Data acquisition was obtained from the skull base through the vertex following intravenous administration of IV 100mL [id number]-[id number]. MIP images were reconstructed from the axial data set. Post-processing of the angiographic images was performed, with multiplanar reformation and 3D reconstruction. Individualized dose optimization techniques were used for this CT. COMPARISON: No relevant priors. FINDINGS: Normal bilateral petrous carotid arteries. Normal right cavernous carotid artery with a normal supraclinoid bifurcation. Normal left cavernous carotid artery with a normal supraclinoid bifurcation. Normal right A1 segments of the anterior cerebral artery. Normal left A1 segments of the anterior cerebral artery. Normal intact anterior communicating artery (ACOM). Normal bilateral A2 segments of the anterior cerebral arteries. Normal right M1 and M2 segments of the middle cerebral arteries, with a normal M1 bifurcation. Normal left M1 and M2 segments of the middle cerebral arteries, with a normal M1 bifurcation. Normal right posterior communicating artery (PCOM). Normal left posterior communicating artery (PCOM). Normal bilateral vertebral arteries. Normal basilar artery with a normal basilar bifurcation. The visualized bilateral superior cerebellar (SCA) arteries are normal. Normal bilateral P1, P2 and visualized P3 segments of the posterior cerebral arteries. There is no demonstrated aneurysm of the [place]. There is no demonstrated abnormality of the visualized brain. AORTIC ARCH: Normal visualized aortic arch. Normal origins of the brachiocephalic, left common carotid, and left subclavian arteries. RIGHT CAROTID ARTERIES: Normal right common carotid artery (CCA). Normal right common carotid bulb. Normal origin of the right internal carotid (ICA) artery without a hemodynamically significant stenosis. Normal visualized cervical portion of the right internal carotid artery. Normal origin of the right external carotid artery (ECA). LEFT CAROTID ARTERIES: Normal left common carotid artery (CCA). Normal left common carotid bulb. Normal origin of the left internal carotid (ICA) artery without a hemodynamically significant stenosis. Normal visualized cervical portion of the left internal carotid artery. Normal origin of the left external carotid artery (ECA). VERTEBRAL ARTERIES: Normal bilateral vertebral arteries. There is extensive mediastinal tumor and left hilar tumor. And level 3A necrotic lymph node. CT/CTA Head AND Neck W/ Contrast IMPRESSION: Patent cervical and cranial arteries. Known thoracic malignancy, refer to chest imaging. N.B. : The above information has been verbally conveyed by Kathleen Kingsley to Dr. Reji Marc, DO, DO, on 05/07/2020 21:55:20 (ET). Electronically Signed: Kathleen Kingsley, at 21:56 EDT Tel , Service support ,
[2020-05-07 21:17] LABS: Anion Gap 7 (5-15); BUN 9 mg/dL (7-18); BUN/Creat Ratio 10.8 RATIO (10-20); Chloride 103 mmol/L (98-107); Creatinine, Serum 0.83 mg/dL (0.70-1.30); EST Glomerular Filtration Rate 98 mL/min (>60); Est Glom Filt Rate - Afr Amer 118 mL/min (>60); Glucose 114 mg/dL (74-106); Potassium 3.7 mmol/L (3.5-5.1); Sodium Level 139 mmol/L (136-145)
[2020-05-07 21:29] LABS: Prothrombin Time (Protime)PT. 13.1 SECONDS (11.7-14.9)
[2020-05-07 21:30] LABS: Partial Thromboplast Time 32.8 Seconds (24.1-36.2)
[2020-05-07] MEDS: Acetaminophen 500 MG Tablet 1000 MG PO (22:12)
[2020-05-07] MEDS: Aspirin 81 MG TAB.CHEW 324 MG PO (23:00)
--- NOTE | 2020-05-07 23:17 | PCM.HP.STD ---
Problem List (1) CVA (cerebral vascular accident) Status: Acute Qualifiers: CVA mechanism: unspecified Qualified Code(s): I63.9 - Cerebral infarction, unspecified (2) Lung mass Status: Chronic (3) Alcohol abuse Status: Chronic (4) Former tobacco use Status: Chronic History of Present Illness Date of Admission: 05/07/20 Chief Complaint: Stroke like symptoms The patient is a 69 y/o M w/ PMHx: NERY, Former Tobacco use, Former EtOH Abuse, Left hilar and right mediastinal lung masses being currently worked up following ongoing cough and chronic sinus congestion for with recent lung mass bx day prior to presentation on 05/06/20 with sudden onset at ~7:45 pm severe headache rated 8/10 in severity with concurrent R sided weakness, slurred speech and L facial droop with paresthesias with noted NIHSS 3 with improvement during ED presentation with scoring for ataxia, mild RLE drig and mild dysarthria. Patient describes the headache primarily initially in the posterior lower region now radiating toward the frontal temporal region, throbbing, rated 6-8 out of 10 in severity with no light or sound sensitivity. Stoke alert called and patient not candidate for TPA given recent Bx history. Work-up in the ED included T 99.8, heart 89, BP 161/70, respiratory rate 16, 91% on room air, CBC with WBC 6, hemoglobin 12.2, platelet 280 without significant shift, unremarkable coags, unremarkable BMP aside glucose 115, troponin less than 0.015, ethyl alcohol level 3.0, CT of the brain unremarkable, chest x-ray with left hilar and right mediastinal masses, cardiomegaly evident, calcified plaques of the aortic arch, CTA of the head and neck with evident patent cervical and cranial arteries with evidence known thoracic malignancy. Neurology recommended admission if no LVO or severe stenosis with continued evaluation including hemoglobin A1c, repeat CBC, CMP, lipid profile in a.m., UDS, urinalysis, echocardiogram, telemetry monitoring, MRI of the brain with continued therapy evaluations, EKG SR without acute evidence of ischemia. In the ED patient ministered Tylenol 1000 mg p.o. x1 in addition to aspirin 324 mg p.o. x1. Past Medical History Past Medical History (Chronic Problems): Chronic Problems Lung mass (Chronic) Alcohol abuse (Chronic) Former tobacco use (Chronic) Medical History: Medical History (Last Reviewed 05/02/20 @ 10:27 by Cathie Villela) Hearing loss (Acute) H91.90 Sleep apnea (Acute) G47.30 Allergies No Known Allergies Allergy (Verified 05/05/20 10:02) Home Medications: Ambulatory Orders Medication Instructions Recorded NK 04/29/20 Surgical History: Surgical History (Last Reviewed 05/02/20 @ 10:27 by Cathie Villela) H/O shoulder surgery (Resolved) Z98.890 H/O hernia repair (Resolved) Z98.890, Z87.19 Surgical History: - - Right rotator cuff surgery, left shoulder replacement, bilateral inguinal hernia repair. Psychiatric History: No pertinent psych hx Lives: Spouse/ Significant Other Smoking Status: Former smoker - Patient quit cigarette tobacco usage in January 2020, prior to this smoked approximately 1 pack/day x 40 years. Alcohol: Heavy - Patient with history of significant prior beer consumption of at least a 12 pack daily but over the last year transition to hard liquor drink during the day noted to be strong per his but reported as sober x1.5 years on recent pulmonary note. Drugs: None - *Family History Maternal Family History: Family History (Last Updated 05/02/20 @ 10:28 by Cathie Villela) Father Heart disease Mother Ovarian cancer Sister Colon cancer History Items: Cancer - Mother with a history of ovarian cancer. Paternal Family History: Family History (Last Updated 05/02/20 @ 10:28 by Cathie Villela) Father Heart disease Mother Ovarian cancer Sister Colon cancer History Items: High Cholesterol, Heart Disease, Hypertension Review of Systems Constitutional: Reports: Malaise, Weakness, Fatigue. Denies: Anorexia, Chills, Fever, Weight Change HEENT: Reports: Head Aches, Post Nasal Drip. Denies: Sinus Congestion, Sinus Drainage Cardiovascular: Denies: Chest Pain, Palpitations Respiratory: Reports: Cough. Denies: Shortness of breath at rest, Sputum production Gastrointestinal: Denies: Abdominal Pain, Nausea, Vomiting Genitourinary: Denies: Dysuria Musculoskeletal: Reports: Joint Pain. Denies: Joint Tenderness Skin: Denies: Rash, Wounds Neurological: Reports: Change in Speech, Slurred speech, Focal weakness, Incoordination, Numbness, Tingling Psychiatric: Denies: Anxiety, Depression, Homicidal Ideations, Suicidal Ideations Hematologic/ Lymphatic: Denies: Easy Bruising, Easy Bleeding VTE Information - Inpt Only VTE Present on Admission: No VTE Mechan Device Prophylaxis: SCD's VTE Pharm Prophylaxis ordered?: No Reason prophylaxis not ordered:: Medical Contraindication - We will hold initiation of chemoprophylaxis given recent lung biopsy, initiate in a.m. if appropriate. Patient Problems: Active and Suspected Problems (Last Reviewed 05/02/20 @ 10:27 by Cathie Villela) CVA (cerebral vascular accident) (Acute) Subjective: Patient seated upright in the ED bed, fatigued appearance, no acute distress, does report ongoing headache, planned migraine cocktail administration, confirms no light or sound sensitivity associated. Objective: Physical Examination: General: awake, alert, oriented x 3 and cooperative, seated upright in the ED, notes ongoing headache but otherwise no acute distress. Skin: normal color, turgor, no icterus, cyanosis. HEENT: AT/NC, EOMI, PERRLA, mildly dry MM, appearance mild left facial droop, lower, corrective with smile however, no carotid bruits or JVD noted. Lungs: Diminished breath sounds, greater bases, mildly decreased effort, no obvious rales, rhonchi or wheezing. Heart: Regular rate and rhythm; no gallop, rub audible. Abdomen: soft, NTTP, ND, normal BS, no HSM. Extremities: no cyanosis, clubbing, or edema. Neurological: patient awake, alert, oriented x 3; cognitive function appears baseline intact; pupils equally reactive to light and accomodation; cranial nerves II-XII grossly normal, moving all 4 extremities however notable right-sided 4-5 strength, [id number]-pm-[id number] and dihf-bq-[id number] right-sided abnormal with ataxia evident, dysarthria present, mild subjective sensation decreased, equivocal Babinski, left side normal. Psychiatric: affect appears fatigued otherwise normal, no acute evidence of depressive or anxiety feelings. - Physical Exam Vitals/I&O's: Vital Signs Temp Pulse Resp BP Pulse Ox 98 F 84 22 H 141/77 H 94 05/07/20 23:00 05/07/20 23:00 05/07/20 23:00 05/07/20 23:00 05/07/20 23:00 Oxygen Delivery Method Room Air Weight: 196 lb 6.91 oz Body Mass Index (BMI) 25.9 Finger Stick Blood Glucose 128 Laboratory Results 05/07/20 20:47: WBC 6.0, RBC 3.66 L, Hgb 12.2 L, Hct 36.1 L, MCV 98.6 H, MCH 33.3 H, MCHC 33.8, RDW Std Deviation 46.9 H, RDW Coeff of Elsy 13.1, Plt Count 280, MPV 10.3, Immature Gran % (Auto) 0.300, Neut % (Auto) 70.1 H, Lymph % (Auto) 17.1 L, [place] % (Auto) 10.8 H, Eos % (Auto) 1.2, Baso % (Auto) 0.5, Absolute Neuts (auto) 4.2, Absolute Lymphs (auto) 1.02, Nucleated RBC % 0 05/07/20 20:47: PT 13.1, INR 1.0, APTT 32.8 05/07/20 20:47: Sodium 139, Potassium 3.7, Chloride 103, Carbon Dioxide 29.0, Anion Gap 7, BUN 9, Creatinine 0.83, Estim Creat Clear Calc 97.60, Est GFR (MDRD) Af Amer 118, Est GFR (MDRD) Non-Af 98, BUN/Creatinine Ratio 10.8, Glucose 114 H, Calcium 9.0, Troponin I < 0.015 05/07/20 22:15: Ethyl Alcohol 3.0 Assessment/Plan All Active Problems (Last Reviewed 05/02/20 @ 10:27 by Cathie Villela) CVA (cerebral vascular accident) (Acute) H/O shoulder surgery (Resolved) H/O hernia repair (Resolved) Hearing loss (Acute) Sleep apnea (Acute) The patient is a 69 y/o M w/ PMHx: NERY, Former Tobacco use, Former EtOH Abuse, Left hilar and right mediastinal lung masses being currently worked up following ongoing cough and chronic sinus congestion for with recent lung mass bx day prior to presentation on 05/06/20 with sudden onset at ~7:45 pm severe headache rated 8/10 in severity with concurrent R sided weakness, slurred speech and L facial droop with paresthesias. 1. Ataxia, right-sided paresthesias, right-sided weakness, dysarthria concerning for CVA versus Metastatic disease secondary to #2: Will admit to PCU, will obtain MRI Brain with and without given CA history, ECHO with bubble study, PT/OT/Speech/Nutrition evaluation per protocol. Will allow permissive HTN, given recent lung biopsy will initiate only low dose asa with further antiplt therapy discussions following MRI of the brain with and without contrast given cancer concern with possible mets as etiology for presentation as well as clearance per Dr. Mcqueen if Neurology recommendation, start high-dose statin w/ AM FLP, fall precautions. HgbA1c, mag, TSH, FLP pending. 2. Lung mass/mediastinal adenopathy: Ongoing evaluation outpatient, recent biopsy via bronchoscopy per Dr. Mcqueen as noted, initially started as ongoing cough and chronic sinus congestion with ENT evaluation with eventual CT of the chest revealing a large mediastinal mass encompassing the paratracheal region and extending into the subcarinal and bilateral hilar region, left greater than right with extrinsic compression of the left main bronchus with follow-up with Dr. Mcqueen. As noted MRI of the brain being obtained with and without contrast as presentation could be associated with mets. 3. EtOH Abuse: Patient per spouse with ongoing EtOH usage despite reported history of significant alcohol abuse with beer and reported sobriety 1.5 years per recent Pulmonary visit note. Will maintain on CIWA protocol, MVI, thiamine and folic acid. Case management consultation for ongoing substance abuse issues. EtOH level 3.0. UDS requested per Neurology request. 4. Former Tobacco use: Patient with a [id number] history, recently quit smoking 01/2020, encourage continued tobacco cessation. 5. DVT prophylaxis: SCDs, given recent biopsy will defer chemoprophylaxis this evening but initiate potentially 05/08/2020. 6. CODE status: Patient does not have healthcare power of commercial litigation attorney nor living will set up. present and discussed CODE status at length including difference between FULL code, DNR-CCA and DNR-CC status. Following discussions about the differences in these status, requested Full Code status; however, patient noted that if efforts futile he would prefer to defer aggressive further intervention. Discussed importance of setting up LW and HCPOA and noted him and his may discuss these items with CM/SW for assistance if interested especially given new recent lung cancer work-up. Advanced Care Planning Face to Face Time: 16 minutes. Inpatient E&M: 14200 Init Hosp L3 Procedures: 92821 Advncd Care Plan 30 Min
[2020-05-07] MEDS: Metoclopramide 10 MG/2 ML Vial IV (23:50)
[2020-05-07] MEDS: DiphenhydrAMINE 50 MG/ML Syringe 25 MG IV (23:51)
[2020-05-08] VITALS (12 sets, daily range): BP systolic 139–154; BP diastolic 59–75; PULSE 69–82; RESP 16–18; TEMP 36.9–37.2; O2SAT 91–97; BMI 25.4; BMI 25.5
--- NOTE | 2020-05-08 00:06 | MRI_ITS ---
STUDY: MRI BRAIN WITH AND WITHOUT CONTRAST REASON FOR EXAM: Male, 69 years old. cva, dizzy TECHNIQUE: Standardized multiplanar fat and water weighted pulse sequences were obtained. dotarem 17ml was administered for the contrast portion of the examination. COMPARISON: None. FINDINGS: Normal size of the ventricles and extra-axial spaces for the patient''s age. Normal white matter tracts of the supratentorial brain. There is no evidence for recent intracranial ischemia or other cause of cytotoxic edema on diffusion weighted imaging (DWI). Normal T2* images of the brain without demonstrated susceptibility artifact. There is no demonstrated hemosiderin stain. Normal bilateral basal ganglia. Normal thalami. There is no extra-axial fluid accumulation. Normal flow voids within the major intracranial circulation suggesting patency by spin echo criteria. Normal venous enhancement. There is no enhancing intra-axial or extra-axial abnormality. Normal sella turcica, pituitary gland, infundibular stalk, optic chiasm and hypothalamus. Normal tectal plate and pineal gland. Normal midbrain, keya and medulla. Normal cerebellum. Normal basal cisterns. Normal bilateral temporal bones. Normal bilateral internal auditory canals. No demonstrated orbital abnormality, within the constraints of a routine brain study. Normal visualized paranasal sinuses. Normal calvarium and skull base. Normal visualized soft tissue structures. Normal visualized upper cervical spine. MRI/Brain W/WO Contrast IMPRESSION: No evidence of acute intracranial bleed, mass or ischemia. No evidence of abnormal enhancement. Electronically Signed: Tan Ruiz DO at 9:48 EDT , Service support ,
--- NOTE | 2020-05-08 00:06 | ECHOD_ITS ---
Reason For Study: TIA/CVA Procedure This was a 2D Doppler, Color Flow transthoracic echocardiogram. The exam was of adequate technical quality. Exam performed portable in patient room. Left Ventricle Normal LV size. Left ventricular systolic function is normal. The estimated ejection fraction is 70 %. Diastolic function is indeterminate. No regional wall motion abnormalities noted. Right Ventricle Normal RV size. Normal systolic function. Atria Normal left atrium. Normal right atrium. No doppler evidence for ASD. Bubble contrast study negative for right to left interatrial shunt. Mitral Valve There is no mitral annular calcification. Anterior leaflet diffuse mitral valve thickening. Mild (1+) eccentric mitral valve insufficiency. Tricuspid Valve Normal tricuspid valve. Trivial tricuspid valve insufficiency. Right ventricular systolic pressure estimated to be 42 mmHg. Aortic Valve Trisinus/trileaflet aortic valve. Mild diffuse aortic valve thickening. Pulmonic Valve The pulmonic valve is not well visualized. Trivial pulmonic valve insufficiency. Great Vessels Normal sized aortic root. Pericardium/Pleural No pericardial effusion. Medication Performed a rapid injection of agitated mix of 9 cc saline and 1cc air to assess for atrial septal defect. MMode/2D Measurements & Calculations LVIDd: 5.3 cm IVSd: 1.0 cm Ao root diam: 3.2 cm LVIDs: 2.9 cm LVPWd: 1.0 cm RVDd: 3.8 cm FS: 44.8 % LAV(MOD-bp): 56.5 ml LVAd ap4: 30.6 cm2 SV(MOD-sp4): 68.6 ml LAV(MOD-bp) Indexed: 26.7 ml/m2 EDV(MOD-sp4): 99.0 ml LAV(MOD-sp2): 62.0 ml EDV(sp4-el): 104.8 ml LAV(MOD-sp4): 50.0 ml LVAs ap4: 15.5 cm2 ESV(MOD-sp4): 30.5 ml ESV(sp4-el): 31.4 ml EF(MOD-sp4): 69.3 % EF(sp4-el): 70.0 % SV(sp4-el): 73.4 ml LA A4 area: 18.9 cm2 LA dimension(2D): 4.0 cm RA A4 area: 21.1 cm2 Time Measurements MV dec time: 0.19 sec Doppler Measurements & Calculations MV E max bg: 139.8 cm/sec Lat Peak E' Bg: 9.5 cm/sec Med Peak E' Bg: 10.2 cm/sec MV A max bg: 107.9 cm/sec E/E' lat: 14.7 E/E' med: 13.7 MV E/A: 1.3 Ao V2 max: 187.0 cm/sec LV V1 max: 178.6 cm/sec PA V2 max: 119.6 cm/sec Ao max P.0 mmHg LV V1 max P.8 mmHg TR max bg: 310.4 cm/sec TR max P.5 mmHg Interpretation Summary Left ventricular systolic function is normal. The estimated ejection fraction is 70 %. Anterior leaflet diffuse mitral valve thickening. Mild (1+) eccentric mitral valve insufficiency. Trivial tricuspid valve insufficiency. Mild diffuse aortic valve thickening. Trivial pulmonic valve insufficiency. Right ventricular systolic pressure estimated to be 42 mmHg. Diastolic function is indeterminate. Bubble contrast study negative for right to left interatrial shunt. 2D echocardiographic images demonstrate a mobile mass lesion (approximately 0.8 cm x 0.9 cm in size) in the left atrium which intermittently appears to prolapse across the mitral valve of uncertain etiology with the differential diagnosis potentially compatible with mobile lesion secondary to tumor or thrombus or possibly vegetation. Comment: The above information was conveyed to Dr. Cox of the [facility] hospitalist team. Ordering Physician: Chelsey Anthony Referring Physician: MIK BOOKER Performed By: Yuliet Wilson, PRADEEP
[2020-05-08] MEDS: 0.9% Normal Saline 1,000 ML 100 ML IV (00:48)
[2020-05-08 00:57] LABS: Magnesium 1.9 mg/dL (1.6-2.6); Phosphorus 2.6 mg/dL (2.5-4.9); T4 Free Direct 1.42 ng/dL (0.76-1.46); Thyroid Stim Hormone (TSH) 0.59 uIU/mL (0.358-3.74)
[2020-05-08 01:00] LABS: Hemoglobin A1c 5.1 % (3.8-5.6)
[2020-05-08 05:24] LABS: Absolute Lymphocyte Count 0.99 X10^3/uL (0.83-4.51); Absolute Neutrophil Count 3.9 X10^3/uL (2.0-7.7); Basophil# 0.04 X10^3/uL; Basophil% 0.7 % (0-1); Eosinophil# 0.15 X10^3/uL; Eosinophils% 2.6 % (0-5); Hematocrit 36.4 % (40-54); Hemoglobin 11.8 g/dL (13.0-16.5); Lymphocyte # 0.99 X10^3/ul (4.0); Lymphocyte % 17.4 % (19-41); Mean Corp Hgb Conc 32.4 g/dL (32-36); Mean Corpuscular Hgb 32.7 pg (27.0-32.0); Mean Corpuscular Volume 100.8 fL (80-94); Mean Platelet Vol. 10.3 fl (6.2-12.0); Monocyte# 0.56 X10^3/uL; Monocyte% 9.8 % (0-10); NRBC Flagged by Analyzer 0 % (0-5); Neutrophil # 3.94 X10^3/uL (2.7-7.7); Neutrophil % 69.1 % (47-70); Platelet Count 261 K/mm3 (150-450); RBC Distribution Width CV 13.2 % (11.6-14.6); RBC Distribution Width SD 48.9 fl (35.1-43.9); Red Blood Count 3.61 M/mm3 (4.6-6.2); White Blood Count 5.7 K/mm3 (4.4-11.0)
[2020-05-08 05:51] LABS: ALB/GLOB Ratio 0.7 RATIO (0.9-2.4); AST(SGOT) 77 U/L (15-37); Alanine Aminotransfer ALT/SGPT 63 U/L (16-61); Albumin, Serum 2.9 g/dL (3.2-5.0); Alkaline Phosphatase 431 U/L (45-117); Anion Gap 5 (5-15); BUN 12 mg/dL (7-18); BUN/Creat Ratio 16.3 RATIO (10-20); Calcium,Total 8.6 mg/dL (8.5-10.1); Chloride 105 mmol/L (98-107); Cholesterol 143 mg/dL (200); Creatinine, Serum 0.74 mg/dL (0.70-1.30); EST Glomerular Filtration Rate 113 mL/min (>60); Est Glom Filt Rate - Afr Amer 137 mL/min (>60); Estimated Creatinine Clearance 81.01 ml/min; Globulin 4.3 g/dL (2.2-4.2); Glucose 98 mg/dL (74-106); High Density Lipoprotein 66 mg/dL; Potassium 3.5 mmol/L (3.5-5.1); Protein, Total 7.2 g/dL (6.4-8.2); Sodium Level 139 mmol/L (136-145); Triglycerides 82 mg/dL; Very Low Density Lipoprotein 16 mg/dL (5-40)
[2020-05-08 05:55] LABS: Amphetamine Urine VISTA NEGATIVE (<1000 ng/mL); Barbiturate Urine VISTA NEGATIVE (< 200 ng/mL); Benzodiazepine Urine VISTA NEGATIVE (< 200 ng/mL); Cocaine Urine VISTA NEGATIVE (< 300 ng/mL); Ecstacy Urine VISTA NEGATIVE (< 500 ng/mL); Methadone Urine VISTA NEGATIVE (< 300 ng/mL); PCP Urine VISTA NEGATIVE (< 25 ng/mL); THC Urine VISTA NEGATIVE (< 50 ng/mL); Vista UDS pH Range 6
[2020-05-08] MEDS: Famotidine 20 MG Tablet PO ×2 (08:18→20:48)
[2020-05-08] MEDS: Folic Acid 1 MG Tablet PO (08:18)
[2020-05-08] MEDS: Thiamine Hydrochloride 100 MG Tablet PO ×2 (08:18→16:56)
[2020-05-08] MEDS: Aspirin 81 MG TAB.CHEW PO (08:18)
[2020-05-08] MEDS: Multivitamins,Ther W-Minerals Tablet 1 TABLET PO (08:18)
--- NOTE | 2020-05-08 14:07 | PN_ITS ---
Patient Problems: Active and Suspected Problems (Last Reviewed 05/02/20 @ 10:27 by Cathie Villela) CVA (cerebral vascular accident) (Acute) Subjective: Patient seen and examined. He had no complaints this morning. He was admitted with a complaint of some right-sided weakness, slurred speech and left facial droop. The symptoms have now resolved. CT of the brain was negative for any stroke. Review of symptoms otherwise negative. He is to have MRI today. He has remained hemodynamically stable. Vitals/I&O's: Vital Signs Temp Pulse Resp BP Pulse Ox 98.4 F 69 16 147/66 H 96 05/08/20 08:11 05/08/20 08:11 05/08/20 08:11 05/08/20 08:11 05/08/20 08:11 Oxygen Delivery Method Room Air Weight: 192 lb 14.472 oz Body Mass Index (BMI) 25.4 Finger Stick Blood Glucose 128 Intake and Output for Last 24 Hours 05/06/20 05/07/20 05/08/20 23:59 23:59 23:59 Intake Total 1268.33 / 1268.33 Output Total 1500 / 1500 Balance -231.67 / -231.67 General: Alert, Oriented x3, Cooperative HEENT: Atraumatic, PERRLA, EOMI, Normocephalic Oral: Moist Mucosa Neck: Supple, No JVD, Negative Carotid Bruits Lungs: Clear to auscultation, Normal air movement, No rhonchi, No wheeze Cardiovascular: Regular rate, Regular Rhythm, Normal S1, Normal S2, No murmurs Abdomen: Bowel Sounds Present, Soft, Non Tender, Non-Distended, No Hepato- splenomegaly Extremities: No clubbing, No cyanosis, No edema, Capillary Refill Less than 3 Seconds Skin: No rashes, No breakdown Musculoskeletal: No Tenderness to Palpation of Joints or Extremities, No Muscle Wasting Lymphatic: No Cervical, Supraclavicular, or Inguinal Adenopathy Neurological: Cranial nerves II-XII grossly intact, Neuro grossly intact, Motor Exam 5/5 strength throughout Psych/Mental Status: Normal Affect, Appropriate, Alert and oriented to time, place, person, mood and affect Laboratory Results 05/07/20 20:47: WBC 6.0, RBC 3.66 L, Hgb 12.2 L, Hct 36.1 L, MCV 98.6 H, MCH 33.3 H, MCHC 33.8, RDW Std Deviation 46.9 H, RDW Coeff of Elsy 13.1, Plt Count 280, MPV 10.3, Immature Gran % (Auto) 0.300, Neut % (Auto) 70.1 H, Lymph % (Auto) 17.1 L, Mora % (Auto) 10.8 H, Eos % (Auto) 1.2, Baso % (Auto) 0.5, Absolute Neuts (auto) 4.2, Absolute Lymphs (auto) 1.02, Nucleated RBC % 0 05/07/20 20:47: PT 13.1, INR 1.0, APTT 32.8 05/07/20 20:47: Sodium 139, Potassium 3.7, Chloride 103, Carbon Dioxide 29.0, Anion Gap 7, BUN 9, Creatinine 0.83, Estim Creat Clear Calc 97.60, Est GFR (MDRD) Af Amer 118, Est GFR (MDRD) Non-Af 98, BUN/Creatinine Ratio 10.8, Glucose 114 H, Calcium 9.0, Troponin I < 0.015 05/07/20 20:57: Phosphorus 2.6, Magnesium 1.9, TSH 0.59, Free T4 1.42 05/07/20 20:57: Hemoglobin A1c 5.1 05/07/20 22:15: Ethyl Alcohol 3.0 05/08/20 04:00: Urine Opiates Screen NEGATIVE, Urine Methadone Screen NEGATIVE, Ur Barbiturates Screen NEGATIVE, Ur Phencyclidine Scrn NEGATIVE, Ur Amphetamines Screen NEGATIVE, U Methamphetamin-MDMA NEGATIVE, U Benzodiazepines Scrn NEGATIVE, Urine Cocaine Screen NEGATIVE, U Cannabinoids Screen NEGATIVE, Ur Drug Screen Comment 05/08/20 05:14: WBC 5.7, RBC 3.61 L, Hgb 11.8 L, Hct 36.4 L, MCV 100.8 H, MCH 32.7 H, MCHC 32.4, RDW Std Deviation 48.9 H, RDW Coeff of Elsy 13.2, Plt Count 261, MPV 10.3, Immature Gran % (Auto) 0.400, Neut % (Auto) 69.1, Lymph % (Auto) 17.4 L, Mora % (Auto) 9.8, Eos % (Auto) 2.6, Baso % (Auto) 0.7, Absolute Neuts (auto) 3.9, Absolute Lymphs (auto) 0.99, Nucleated RBC % 0 05/08/20 05:14: Sodium 139, Potassium 3.5, Chloride 105, Carbon Dioxide 29.0, Anion Gap 5, BUN 12, Creatinine 0.74, Estim Creat Clear Calc 81.01, Est GFR (MDRD) Af Amer 137, Est GFR (MDRD) Non-Af 113, BUN/Creatinine Ratio 16.3, Glucose 98, Calcium 8.6, Total Bilirubin 0.50, AST 77 H, ALT 63 H, Alkaline Phosphatase 431 H, Total Protein 7.2, Albumin 2.9 L, Globulin 4.3 H, Albumin/Globulin Ratio 0.7 L, Triglycerides 82, Cholesterol 143, LDL Cholesterol 61, VLDL Cholesterol 16, HDL Cholesterol [address] 05/07/20 20:52 IMPRESSION: Normal unenhanced CT scan of the brain. If acute infarct is clinically suspected, CTA brain and/or MRI may be helpful for further evaluation at this time. Electronically Signed: Yariel Aiken MD at 21:10 EDT , Service support , ADDENDUM: 05/07/202118 IMPRESSION: Normal unenhanced CT scan of the brain. If acute infarct is clinically suspected, CTA brain and/or MRI may be helpful for further evaluation at this time. N.B. : The above information has been verbally conveyed by Yariel Aiken MD to Dr. Reji Marc, , , on 05/07/2020 21:12:17 (ET). Electronically Signed: Yariel Aiken MD at 21:10 EDT , Service support , Chest X-Ray 05/07/20 20:52 IMPRESSION: Left hilar and right mediastinal masses. Cardiomegaly. Calcified plaques of the aortic arch. Electronically Signed: Yariel Aiken MD at 21:57 EDT , Service support , Head/Neck CTA 05/07/20 21:16 IMPRESSION: Patent cervical and cranial arteries. Known thoracic malignancy, refer to chest imaging. N.B. : The above information has been verbally conveyed by Kathleen Kingsley to Dr. Reji Marc DO, DO, on 05/07/2020 21:55:20 (ET). Electronically Signed: Kathleen Kingsley at 21:56 EDT Tel , Service support , ADDENDUM: 05/07/20 2203 IMPRESSION: Patent cervical and cranial arteries. Known thoracic malignancy, refer to chest imaging. N.B. : The above information has been verbally conveyed by Kathleen Kingsley to Dr. Reji Marc DO, DO, on 05/07/2020 21:55:20 (ET). Electronically Signed: Kathleen Kingsley at 21:56 EDT Tel , Service support , Brain MRI 05/08/20 00:06 IMPRESSION: No evidence of acute intracranial bleed, mass or ischemia. No evidence of abnormal enhancement. Electronically Signed: Tan Ruiz DO at 9:48 EDT , Service support , Current Medications Acetaminophen (Tylenol) 650 mg PO Q6H PRN PRN PRN Reason: Pain Score 1-10/Temp > 100.7 F Al Hydroxide/Mg Hydroxide (Mylanta Ii) 30 ml PO Q6H PRN PRN PRN Reason: Gastric Burning Albuterol Sulfate (Ventolin Aerosols) 2.5 mg INHALATION Q2H PRN PRN PRN Reason: Dyspnea, wheezing Aspirin (Aspirin, Baby) 81 mg PO DAILY@0800 [facility] Last Admin: 05/08/20 08:18 Dose: 81 mg Documented by: Atorvastatin Calcium (Lipitor) 80 mg PO QHS [facility] Famotidine (Pepcid) 20 mg PO BID [facility] Last Admin: 05/08/20 08:18 Dose: 20 mg Documented by: Folic Acid (Folic Acid) 1 mg PO DAILY@0800 [facility] Stop: 05/10/20 08:01 Last Admin: 05/08/20 08:18 Dose: 1 mg Documented by: Guaifenesin (Robitussin) 20 ml PO Q4H PRN PRN PRN Reason: COUGH Hydralazine HCl (Apresoline Iv) 5 mg IV Q30M PRN PRN Reason: to maintain BP goals Sodium Chloride () 250 mls @ 15 mls/hr IV .[id number] PRN PRN Reason: Saline Flush Sodium Chloride () 250 mls @ 15 mls/hr IV .[id number] PRN PRN Reason: Additional IVPB Infusion Labetalol HCl (Trandate) 10 - 20 mg IV Q10M PRN PRN PRN Reason: to Maintain BP Goals Lorazepam (Ativan) 2 mg PO Q2H PRN PRN; Protocol PRN Reason: CIWA score > 8 but <15 Lorazepam (Ativan) 2 mg PO UD PRN; Protocol PRN Reason: CIWA score >/=15. Lorazepam (Ativan) 2 mg IV Q2H PRN PRN; Protocol PRN Reason: CIWA score > 8 but <15 Lorazepam (Ativan) 2 mg IV UD PRN; Protocol PRN Reason: CIWA score >/=15. Magnesium Hydroxide (Milk Of Magnesia) 30 ml PO DAILY PRN PRN PRN Reason: Constipation Melatonin (Melatonin) 3 mg PO QHS PRN PRN PRN Reason: INSOMNIA Morphine Sulfate () 2 mg IV Q3H PRN PRN PRN Reason: Pain Score 6-10 Multivitamins/Minerals (Multivitamin With Minerals (Bkc)) 1 tablet PO DAILYCM [facility] Last Admin: 05/08/20 08:18 Dose: 1 tablet Documented by: Nitroglycerin (Nitrostat) 0.4 mg SUBLINGUAL Q5M PRN PRN Reason: CARDIAC/CHEST PAIN Ondansetron HCl (Zofran) 4 mg IV Q8H PRN PRN PRN Reason: NAUSEA/VOMITING Oxycodone HCl (Oxyir) 5 mg PO Q4H PRN PRN PRN Reason: Pain Score 4-5 Prochlorperazine Edisylate (Compazine Iv) 5 mg IV Q4H PRN PRN PRN Reason: Breakthrough Nausea/Vomiting Psyllium Hydrophilic Mucilloid (Metamucil) 1 packet PO DAILY PRN PRN PRN Reason: Constipation Senna/Docusate Sodium (Senokot-S, Veda-Colace) 2 tablet PO BID PRN PRN PRN Reason: Constipation Sodium Chloride () 10 - 40 ml IV UD PRN PRN Reason: SALINE FLUSH Thiamine HCl (Vitamin B1) 100 mg PO BIDCM [facility] Stop: 05/10/20 17:01 Last Admin: 05/08/20 08:18 Dose: 100 mg Documented by: Throat Lozenges (Cepacol Sore Throat Lozenge) 1 lozenge MUCOUS MEM Q2H PRN PRN PRN Reason: SORE THROAT Medical Necessity - Tobacco Use Smoking Status: Former smoker Assessment/Plan All Active Problems (Last Reviewed 05/02/20 @ 10:27 by Cathie Villela) CVA (cerebral vascular accident) (Acute) H/O shoulder surgery (Resolved) H/O hernia repair (Resolved) Hearing loss (Acute) Sleep apnea (Acute) # Stroke like symptoms * Symptoms have resolved. Main symptoms were right-sided paresthesias, right- sided weakness and dysarthria which have all resolved. * MRI of the brain was negative for any evidence of infarct or bleed or any metastatic spread of cancer. * Patient however states he does has difficulty ambulating due to debility. PT OT on board. * Fall precautions. * On high intensity statin * To have 2D echo tomorrow. * #Debility due to right-sided weakness * PT OT on board. Fall precautions. * With PT OT recommendations. * #Lung mass: * Patient says he has been diagnosed with lung cancer. Per bronchoscopy notes from 05/17/2020, preliminary cytology was suggestive of non-small cell carc inoma though final results are pending. He also had mediastinal adenopathy. * CT of the brain was negative for any metastatic spread. * To follow-up with pulmonology on outpatient basis. Yet to establish oncology care. * #History of alcohol abuse: * Not in withdrawal. * Urine tox showed alcohol level of 3. * Currently on CIWA protocol with Multivite, thiamine and folic acid. * Monitor CIWA score. * DVT Prophylaxis: SCDs. Inpatient E&M: 14822 Subs Hosp L2
[2020-05-08] MEDS: Atorvastatin Calcium 80 MG Tablet PO (20:48)
[2020-05-09] VITALS (13 sets, daily range): BP systolic 134–153; BP diastolic 68–77; PULSE 71–86; RESP 16–18; TEMP 36.2–37.2; O2SAT 94–98
[2020-05-09] MEDS: Acetaminophen 325 MG Tablet 650 MG PO ×3 (02:45→18:07)
[2020-05-09] MEDS: Famotidine 20 MG Tablet PO ×2 (07:58→21:46)
[2020-05-09] MEDS: Multivitamins,Ther W-Minerals Tablet 1 TABLET PO (07:58)
[2020-05-09] MEDS: Aspirin 81 MG TAB.CHEW PO (07:58)
[2020-05-09] MEDS: Thiamine Hydrochloride 100 MG Tablet PO ×2 (07:58→18:48)
[2020-05-09] MEDS: Folic Acid 1 MG Tablet PO (07:58)
[2020-05-09] MEDS: oxyCODONE 5 MG Tablet PO ×2 (08:01→18:08)
[2020-05-09] MEDS: Ondansetron 4 MG/2 ML Vial IV (09:13)
[2020-05-09] MEDS: 0.9% Saline Lock 10 ML Syringe IV ×2 (09:13→18:08)
--- NOTE | 2020-05-09 09:55 | DS.PCM_ITS ---
Discharge Date and Diagnosis - Problem List Patient Problems: Active and Suspected Problems (Last Reviewed 05/02/20 @ 10:27 by Cathie Villela) CVA (cerebral vascular accident) (Acute) Date of Admission: 05/07/20 Date of Discharge: 05/09/20 - Primary Discharge Diagnosis Acute Problems: Active Problems (Last Reviewed 05/02/20 @ 10:27 by Cathie Villela) CVA (cerebral vascular accident) (Acute) - Secondary Discharge Diagnosis Chronic Problems: Chronic Problems Lung mass (Chronic) Alcohol abuse (Chronic) Former tobacco use (Chronic) Hospital Course and Treatment Imaging Results: STUDY: MRI BRAIN WITH AND WITHOUT CONTRAST REASON FOR EXAM: Male, 69 years old. cva, dizzy TECHNIQUE: Standardized multiplanar fat and water weighted pulse sequences were obtained. dotarem 17ml was administered for the contrast portion of the examination. COMPARISON: None. FINDINGS: Normal size of the ventricles and extra-axial spaces for the patient''s age. Normal white matter tracts of the supratentorial brain. There is no evidence for recent intracranial ischemia or other cause of cytotoxic edema on diffusion weighted imaging (DWI). Normal T2* images of the brain without demonstrated susceptibility artifact. There is no demonstrated hemosiderin stain. Normal bilateral basal ganglia. Normal thalami. There is no extra-axial fluid accumulation. Normal flow voids within the major intracranial circulation suggesting patency by spin echo criteria. Normal venous enhancement. There is no enhancing intra-axial or extra-axial abnormality. Normal sella turcica, pituitary gland, infundibular stalk, optic chiasm and hypothalamus. Normal tectal plate and pineal gland. Normal midbrain, keya and medulla. Normal cerebellum. Normal basal cisterns. Normal bilateral temporal bones. Normal bilateral internal auditory canals. No demonstrated orbital abnormality, within the constraints of a routine brain study. Normal visualized paranasal sinuses. Normal calvarium and skull base. Normal visualized soft tissue structures. Normal visualized upper cervical spine. MRI/Brain W/WO Contrast IMPRESSION: No evidence of acute intracranial bleed, mass or ischemia. No evidence of abnormal enhancement. Electronically Signed: Tan Ruiz, DO at 9:48 EDT , Service support , ECHO 05/09/2020 -EF 70% -elevated RVSP -LA mass 0.9x0.8 cm Stroke Neurology-ED Operations: None Procedures: 2-D Echocardiogram Summary of Care Provided: Mr. Skaggs is a 69 y/o M w/ PMH of NERY, Former Tobacco Use, Former EtOH Abuse, Left hilar and right mediastinal lung masses (preliminary bx report + for NSCLC s/p bronch on 05/06/20) who presented to the ED on 05/07/2020 with sudden onset at ~7:45 pm severe headache rated 8/10 in severity with concurrent R sided weakness, slurred speech and L facial droop with paresthesias. His NIHSS 3 on admission with improvement during ED presentation with scoring for ataxia, mild RLE drig and mild dysarthria. He described the headache primarily in the posterior lower region now radiating toward the frontal temporal region, throbbing, rated 6-8 out of 10 in severity with no light or sound sensitivity. A Stroke Team called and patient not candidate for TPA given recent biopsy and improvement of sx. Work-up in the ED included T 99.8, heart 89, BP 161/70, respiratory rate 16, 91% on room air, CBC with WBC 6, hemoglobin 12.2, platelet 280 without significant shift, unremarkable coags, unremarkable BMP aside glucose 115, troponin less than 0.015, ethyl alcohol level 3.0, CT of the brain unremarkable, chest x-ray with left hilar and right mediastinal masses, cardiomegaly evident, calcified plaques of the aortic arch, CTA of the head and neck with evident patent cervical and cranial arteries with evidence known thoracic malignancy. Neurology recommended admission if no LVO or severe stenosis. He was admitted to PCU. No cardiac arrhythmias were identified and the pts sx, except for some paresthesia in the L hand, have all resolved. His HUYNH is now resolved as well. An MRI was done and was neg for acute infarct or mass lesion. ASA was added to his home medication list. Dx is suspected TIA with resolution and no brain ischemia that lead to cell . Lipids were all at goal and no statin was indicated. An ECHO was done and showed a normal EF but a LA mass that was 0.9 x 0.8 cm suspicious for a thrombus vs tumor and per d/w cardiology their recommendation was to transfer the pt to a tertiary facility for DONTAE and further evaluation with potential need for CT surgery consultation. He was started on a Heparin ggt (d/w pulm in light of recent bx and L main stem lesion). Case was d/w [facility] and they accepted the pt for transfer. Patient Problems: Active and Suspected Problems (Last Reviewed 05/02/20 @ 10:27 by Cathie Villela) CVA (cerebral vascular accident) (Acute) - Physical Exam Vitals/I&O's: Vital Signs Temp Pulse Resp BP Pulse Ox 97.1 F L 86 18 140/68 H 97 05/09/20 09:40 05/09/20 09:40 05/09/20 09:40 05/09/20 09:40 05/09/20 09:40 Oxygen Delivery Method Room Air Weight: 87.5 kg Body Mass Index (BMI) 25.4 Finger Stick Blood Glucose 128 Intake and Output for Last 24 Hours 05/07/20 05/08/20 05/09/20 23:59 23:59 23:59 Intake Total 1443.33 / 1443.33 350 / 350 Output Total 2300 / 2300 400 / 400 Balance -856.67 / -856.67 -50 / -50 General: Alert, Oriented x3, Cooperative, No apparent distress, Well developed, Well nourished HEENT: Atraumatic, PERRLA, EOMI, Normocephalic, EAC Clear Oral: Moist Mucosa Neck: Supple, Trachea Midline Lungs: No rhonchi, No wheeze, No rales, Diminished - diffusely Cardiovascular: Regular rate, Regular Rhythm, Normal S1, Normal S2, No murmurs, No Ectopic Activity, No rub noted, No Gallop Abdomen: Bowel Sounds Present, Soft, Non Tender, Non-Distended, No Hepato- splenomegaly, No hernias noted Extremities: No clubbing, No cyanosis, No edema, Capillary Refill Less than 3 Seconds Skin: No rashes, No breakdown Musculoskeletal: No Tenderness to Palpation of Joints or Extremities, No Muscle Wasting Neurological: Cranial nerves II-XII grossly intact, Deep Tendon Reflexes 2+/4 and Symmetrical, Motor Exam 5/5 strength throughout, Muscle tone normal, Coordination normal, - - tingling R hand but no numbness Psych/Mental Status: Flat Affect Current Medications Acetaminophen (Tylenol) 650 mg PO Q6H PRN PRN PRN Reason: Pain Score 1-10/Temp > 100.7 F Last Admin: 05/09/20 09:13 Dose: 650 mg Documented by: Al Hydroxide/Mg Hydroxide (Mylanta Ii) 30 ml PO Q6H PRN PRN PRN Reason: Gastric Burning Albuterol Sulfate (Ventolin Aerosols) 2.5 mg INHALATION Q2H PRN PRN PRN Reason: Dyspnea, wheezing Aspirin (Aspirin, Baby) 81 mg PO DAILY@0800 [facility] Last Admin: 05/09/20 07:58 Dose: 81 mg Documented by: Atorvastatin Calcium (Lipitor) 80 mg PO QHS [facility] Last Admin: 05/08/20 20:48 Dose: 80 mg Documented by: Famotidine (Pepcid) 20 mg PO BID [facility] Last Admin: 05/09/20 07:58 Dose: 20 mg Documented by: Folic Acid (Folic Acid) 1 mg PO DAILY@0800 [facility] Stop: 05/10/20 08:01 Last Admin: 05/09/20 07:58 Dose: 1 mg Documented by: Guaifenesin (Robitussin) 20 ml PO Q4H PRN PRN PRN Reason: COUGH Hydralazine HCl (Apresoline Iv) 5 mg IV Q30M PRN PRN Reason: to maintain BP goals Sodium Chloride () 250 mls @ 15 mls/hr IV .[id number] PRN PRN Reason: Saline Flush Sodium Chloride () 250 mls @ 15 mls/hr IV .[id number] PRN PRN Reason: Additional IVPB Infusion Labetalol HCl (Trandate) 10 - 20 mg IV Q10M PRN PRN PRN Reason: to Maintain BP Goals Lorazepam (Ativan) 2 mg PO Q2H PRN PRN; Protocol PRN Reason: CIWA score > 8 but <15 Lorazepam (Ativan) 2 mg PO UD PRN; Protocol PRN Reason: CIWA score >/=15. Lorazepam (Ativan) 2 mg IV Q2H PRN PRN; Protocol PRN Reason: CIWA score > 8 but <15 Lorazepam (Ativan) 2 mg IV UD PRN; Protocol PRN Reason: CIWA score >/=15. Magnesium Hydroxide (Milk Of Magnesia) 30 ml PO DAILY PRN PRN PRN Reason: Constipation Melatonin (Melatonin) 3 mg PO QHS PRN PRN PRN Reason: INSOMNIA Menthol (Bengay Vanishing Scent) 1 applic TOPICAL 4X/DAY PRN PRN PRN Reason: local pain Last Admin: 05/09/20 00:22 Dose: 1 applic Documented by: Morphine Sulfate () 2 mg IV Q3H PRN PRN PRN Reason: Pain Score 6-10 Multivitamins/Minerals (Multivitamin With Minerals (Bkc)) 1 tablet PO DAILYCM [facility] Last Admin: 05/09/20 07:58 Dose: 1 tablet Documented by: Nitroglycerin (Nitrostat) 0.4 mg SUBLINGUAL Q5M PRN PRN Reason: CARDIAC/CHEST PAIN Ondansetron HCl (Zofran) 4 mg IV Q8H PRN PRN PRN Reason: NAUSEA/VOMITING Last Admin: 05/09/20 09:13 Dose: 4 mg Documented by: Oxycodone HCl (Oxyir) 5 mg PO Q4H PRN PRN PRN Reason: Pain Score 4-5 Last Admin: 05/09/20 08:01 Dose: 5 mg Documented by: Prochlorperazine Edisylate (Compazine Iv) 5 mg IV Q4H PRN PRN PRN Reason: Breakthrough Nausea/Vomiting Psyllium Hydrophilic Mucilloid (Metamucil) 1 packet PO DAILY PRN PRN PRN Reason: Constipation Senna/Docusate Sodium (Senokot-S, Veda-Colace) 2 tablet PO BID PRN PRN PRN Reason: Constipation Sodium Chloride () 10 - 40 ml IV UD PRN PRN Reason: SALINE FLUSH Last Admin: 05/09/20 09:13 Dose: 10 ml Documented by: Thiamine HCl (Vitamin B1) 100 mg PO BIDCM [facility] Stop: 05/10/20 17:01 Last Admin: 05/09/20 07:58 Dose: 100 mg Documented by: Throat Lozenges (Cepacol Sore Throat Lozenge) 1 lozenge MUCOUS MEM Q2H PRN PRN PRN Reason: SORE THROAT Home Medications: Medications to take at Discharge Aspirin [Aspirin, Baby] 81 mg PO DAILY@0800 #30 tab.chew 05/09/20 Following Prescriptions Were Given to Patient: Aspirin [Aspirin, Baby] 81 mg PO DAILY@0800 #30 tab.chew Primary Care Physician: Mik Whitten MD [Primary Care Provider] - Medical Necessity - Tobacco Use Smoking Status: Former smoker Meaningful Use Info Meaningful Use Diagnoses (Choose all that apply): Ischemic CVA - CVA Therapy Assessed for PT,OT and/or ST?: Yes - Ischemic Stroke Antithrombotic order at d/c?: No Reason antithrombotic not ordered: Treatment not Indicated Dx of Atrial fib/flutter?: No Anticoagulant at discharge?: Yes Statins at discharge?: No Reason Statin not ordered: Treatment not Indicated Primary Dx Acute Ischemic CVA?: Yes IV tPA ordered during stay?: No Reason IV t-PA not ordered: Treatment not Indicated Inpatient E&M: 41986 Disch Hosp
--- NOTE | 2020-05-09 11:10 | CASEMGMT ---
ERIN MARTIN Assessment: Face to Face with patient for initial transition planning/care coordination assessment. ERIN MARTIN introduced self and role at [facility], pt voices understanding and consents to assessment at this time. Pt is sitting up in chair in no distress at this time. Pt is A/Ox4 at this time and answers questions appropriately but keeps eyes closed during assessment. Pt's sig other is at bedside during assessment. Care providers, pharmacy, and demographics verified at this time. Presentation: Pt had lung biopsy yesterday for cancer dx-at 1945 in evening had slurred speech, left hand n/t, tingling to both feet, right sided weakness Admitting dx: CVA, r/o PCP: Maria Dolores Specialists: ami Mcqueen Preferred Pharmacy: [facility] Prescription Benefit: [employer] Living Will/HPOA: Pt states does not have LW/HPOA but states 'I know I need to do that soon.' Pt would like AD info at this time and this ERIN MARTIN provided a copy of [place] advanced directives at this time. LNOK: Ruby Baudilio, sig other Living Arrangements: Pt states lives with sig other in 1 story home and states no concerns at home at this time. Pt states is independent with ADL's at home at this time. Transportation: Pt states drives self and states no transportation concerns at this time. DME/HHC: Pt states has a walker but does not use and declines need for any further DME at this time. Pt states has had HHC in the past but has not been to SNF. Pt declines need for any further therapy at home/OP at this time. Pt states no concerns with going home at time of discharge. Pt states is retired. Pt states does not smoke cigarettes but does drink 'a big' liquor drink daily. Pt declines need fo ETOH resources at this time. Pt states no further concerns/needs at this time. CM to follow for any further discharge planning/needs. Advised pt to ask for CM if any further questions/concerns/needs arise, voices understanding. Pt Goal: Home Plan: [place] ERIN MARTIN
--- NOTE | 2020-05-09 14:29 | CASEMGMT ---
According to the [employer] website, the following are in-network tertiary facilities: [facility], [facility], [facility], [facility], and . Bev KHAN CM
--- NOTE | 2020-05-09 16:02 | PN_ITS ---
Patient Problems: Active and Suspected Problems (Last Reviewed 05/02/20 @ 10:27 by Cathie Villela) CVA (cerebral vascular accident) (Acute) Subjective: Pt feeling well. All sx except for some numbness in R hand has resolved. Discussed results and recommendations with pt and . They would like to go to [facility] for further care. Vitals/I&O's: Vital Signs Temp Pulse Resp BP Pulse Ox 97.9 F 73 18 134/77 H 97 05/09/20 15:40 05/09/20 15:40 05/09/20 15:40 05/09/20 15:40 05/09/20 15:53 Oxygen Delivery Method Room Air Weight: 87.5 kg Body Mass Index (BMI) 25.4 Finger Stick Blood Glucose 128 Intake and Output for Last 24 Hours 05/07/20 05/08/20 05/09/20 23:59 23:59 23:59 Intake Total 1443.33 / 1443.33 470 / 470 Output Total 2300 / 2300 400 / 400 Balance -856.67 / -856.67 70 / 70 General: Alert, Oriented x3, Cooperative, Well developed, Well nourished, - - Older WM, sitting up in chair next to the bed, appears well, at bedside HEENT: Atraumatic, PERRLA, EOMI, Normocephalic, EAC Clear Oral: Moist Mucosa, No Gingival or Mucosal Lesions/ Ulcerations, - - dentures in place, no thrush Neck: Supple, No JVD, Negative Carotid Bruits, No Nodes, No Nuchal Rigidity, Trachea Midline, Thyroid Normal Size and Texture Lungs: Clear to auscultation, No rhonchi, No wheeze, No rales, Diminished - diffusely Cardiovascular: Regular rate, Regular Rhythm, Normal S1, Normal S2, No murmurs, No Ectopic Activity, No rub noted, No Gallop Abdomen: Bowel Sounds Present, Soft, Non Tender, Non-Distended, No Hepato- splenomegaly, No hernias noted Extremities: No clubbing, No cyanosis, Peripheral Pulses Normal Skin: No rashes, No breakdown Musculoskeletal: No Tenderness to Palpation of Joints or Extremities, No Muscle Wasting, Arthritic Changes Lymphatic: No Cervical, Supraclavicular, or Inguinal Adenopathy Neurological: Cranial nerves II-XII grossly intact, Deep Tendon Reflexes 2+/4 and Symmetrical, Neuro grossly intact, Motor Exam 5/5 strength throughout, Muscle tone normal, Coordination normal, - - slight decreased sensation L hand Psych/Mental Status: Normal Affect, Appropriate, Alert and oriented to time, place, person, mood and affect Laboratory Results 05/09/20 15:45: COVID-19 ([facility]) Pending Current Medications Acetaminophen (Tylenol) 650 mg PO Q6H PRN PRN PRN Reason: Pain Score 1-10/Temp > 100.7 F Last Admin: 05/09/20 09:13 Dose: 650 mg Documented by: Al Hydroxide/Mg Hydroxide (Mylanta Ii) 30 ml PO Q6H PRN PRN PRN Reason: Gastric Burning Albuterol Sulfate (Ventolin Aerosols) 2.5 mg INHALATION Q2H PRN PRN PRN Reason: Dyspnea, wheezing Aspirin (Aspirin, Baby) 81 mg PO DAILY@0800 [facility] Last Admin: 05/09/20 07:58 Dose: 81 mg Documented by: Atorvastatin Calcium (Lipitor) 80 mg PO QHS [facility] Last Admin: 05/08/20 20:48 Dose: 80 mg Documented by: Famotidine (Pepcid) 20 mg PO BID [facility] Last Admin: 05/09/20 07:58 Dose: 20 mg Documented by: Folic Acid (Folic Acid) 1 mg PO DAILY@0800 [facility] Stop: 05/10/20 08:01 Last Admin: 05/09/20 07:58 Dose: 1 mg Documented by: Guaifenesin (Robitussin) 20 ml PO Q4H PRN PRN PRN Reason: COUGH Heparin Sodium (Porcine) (Heparin Na) 6,000 unit IV BOLUS ONE Stop: 05/09/20 16:06 Heparin Sodium (Porcine) (Heparin Na) 0 unit IV UD PRN; Protocol PRN Reason: dose adjustment Hydralazine HCl (Apresoline Iv) 5 mg IV Q30M PRN PRN Reason: to maintain BP goals Sodium Chloride () 250 mls @ 15 mls/hr IV .[id number] PRN PRN Reason: Saline Flush Sodium Chloride () 250 mls @ 15 mls/hr IV .[id number] PRN PRN Reason: Additional IVPB Infusion Heparin Sodium/Dextrose () 25,000 units in 250 mls @ 12 mls/hr IV .[id number] [facility]; Protocol Labetalol HCl (Trandate) 10 - 20 mg IV Q10M PRN PRN PRN Reason: to Maintain BP Goals Lorazepam (Ativan) 2 mg PO Q2H PRN PRN; Protocol PRN Reason: CIWA score > 8 but <15 Lorazepam (Ativan) 2 mg PO UD PRN; Protocol PRN Reason: CIWA score >/=15. Lorazepam (Ativan) 2 mg IV Q2H PRN PRN; Protocol PRN Reason: CIWA score > 8 but <15 Lorazepam (Ativan) 2 mg IV UD PRN; Protocol PRN Reason: CIWA score >/=15. Magnesium Hydroxide (Milk Of Magnesia) 30 ml PO DAILY PRN PRN PRN Reason: Constipation Melatonin (Melatonin) 3 mg PO QHS PRN PRN PRN Reason: INSOMNIA Menthol (Bengay Vanishing Scent) 1 applic TOPICAL 4X/DAY PRN PRN PRN Reason: local pain Last Admin: 05/09/20 00:22 Dose: 1 applic Documented by: Morphine Sulfate () 2 mg IV Q3H PRN PRN PRN Reason: Pain Score 6-10 Multivitamins/Minerals (Multivitamin With Minerals (Bkc)) 1 tablet PO DAILYCM [facility] Last Admin: 05/09/20 07:58 Dose: 1 tablet Documented by: Nitroglycerin (Nitrostat) 0.4 mg SUBLINGUAL Q5M PRN PRN Reason: CARDIAC/CHEST PAIN Ondansetron HCl (Zofran) 4 mg IV Q8H PRN PRN PRN Reason: NAUSEA/VOMITING Last Admin: 05/09/20 09:13 Dose: 4 mg Documented by: Oxycodone HCl (Oxyir) 5 mg PO Q4H PRN PRN PRN Reason: Pain Score 4-5 Last Admin: 05/09/20 08:01 Dose: 5 mg Documented by: Prochlorperazine Edisylate (Compazine Iv) 5 mg IV Q4H PRN PRN PRN Reason: Breakthrough Nausea/Vomiting Psyllium Hydrophilic Mucilloid (Metamucil) 1 packet PO DAILY PRN PRN PRN Reason: Constipation Senna/Docusate Sodium (Senokot-S, Veda-Colace) 2 tablet PO BID PRN PRN PRN Reason: Constipation Sodium Chloride () 10 - 40 ml IV UD PRN PRN Reason: SALINE FLUSH Last Admin: 05/09/20 09:13 Dose: 10 ml Documented by: Thiamine HCl (Vitamin B1) 100 mg PO BIDCM [facility] Stop: 05/10/20 17:01 Last Admin: 05/09/20 07:58 Dose: 100 mg Documented by: Throat Lozenges (Cepacol Sore Throat Lozenge) 1 lozenge MUCOUS MEM Q2H PRN PRN PRN Reason: SORE THROAT STROKE Vital Signs/Narrative: Vital Signs Temp Pulse Resp BP Pulse Ox 05/09/20 15:53 97 05/09/20 15:40 97.9 F 73 18 134/77 H 97 Medical Necessity - Tobacco Use Smoking Status: Former smoker Assessment/Plan All Active Problems (Last Reviewed 05/02/20 @ 10:27 by Cathie Villela) CVA (cerebral vascular accident) (Acute) H/O shoulder surgery (Resolved) H/O hernia repair (Resolved) Hearing loss (Acute) Sleep apnea (Acute) L sided Paresthesia and Weakness with Dysarthria -all sx except for paraesthesia mild of L hand have resolved -MRI neg for Stroke or mass -ECHO shows mobile mass in LA -d/w cards and suspect tumor vs thrombus -start heparin ggt now -Transfer to tertiary center for further evaluation and CT surgery availability per Cards recommendation -if pt is not able to get a bed by am (per d/w [facility] beds are short) will do DONTAE in am -d/c statin--> lipids are at goal without -continue ASA -continue Tele--> no PAF noted thus far LA Mass -0.8x0.9 cm on echo -d/w cardiology and suspect mass vs thrombus -recommended transfer to tertiary center--> [facility] bed pending -will start heparin ggt for now and monitor with concern for thrombus and presentation of stroke like sx -DONTAE here tomorrow if pt still here -NPO after MN -if not thrombus will need CT surg to evaluate HUYNH -resolved Lung Mass -Bronch done on 05/06/2020 and showed friable mass in the L mainstem bronchus -d/w pulm and ok with heparin ggt at this time (d/w Dr. Davies) -watch for hemoptysis -prelim on path shows NSCLC -PET scheduled for 05/17/2020 -f/u with Dr. Mcqueen Elevated BP -mild elevations periodically -monitor trend and treat accordingly Transaminitis -suspect related to EtOH consumption -repeat in am Mild Macrocytic Anemia -hgb 12.2-->11.8 -repeat in am -stable EtOH abuse -continue Phenobarb taper -continue supportive meds -thiamine and folate DVT Prophylaxis -heparin ggt Code Status -Full Inpatient E&M: 15782 Subs Hosp L3
[2020-05-09 18:03] LABS: Partial Thromboplast Time 33.4 Seconds (24.1-36.2); Prothrombin Time (Protime)PT. 13.1 SECONDS (11.7-14.9)
[2020-05-09] MEDS: Heparin Injection (Vial) 5,000 UNIT/ML VIAL 6000 UNIT IV (18:09)
[2020-05-09] MEDS: HEPARIN/D5w 25,000 UNITS 25,000 UNITS/250 ML IV.SOLN. 12 UNITS IV (18:09)
--- NOTE | 2020-05-09 18:41 | NURSING ---
[facility] called and updated on COVID negative test.
--- NOTE | 2020-05-10 09:15 | CASEMGMT ---
Per physician note patient had a TIA. SW attempted numerous times to see patient yesterday to complete a PHQ 9 without any success. Patient was then transferred to [facility]. Jaz MASTERSON
== END 2020-05-09 22:10 | disposition short-term general hospital (02) | DRG 65 ==
LOC: ED 21:52 → PCU 05-08 00:02
PROVIDERS: Admitting Provider Family Medicine; Emergency Provider Student in an Organized Health Care Education/Training Program; PCP Family Medicine; Visit Provider Internal Medicine
DX: I63.9 Cerebral infarction, unspecified (principal); G81.91 Hemiplegia, unspecified affecting right dominant side; C34.02 Malignant neoplasm of left main bronchus; C77.1 Secondary and unspecified malignant neoplasm of intrathoracic lymph nodes; R29.810 Facial weakness; R47.81 Slurred speech; R27.0 Ataxia, unspecified; R47.1 Dysarthria and anarthria; R29.703 NIHSS score 3; R51.9 Headache, unspecified; D15.1 Benign neoplasm of heart; I51.3 Intracardiac thrombosis, not elsewhere classified; G47.33 Obstructive sleep apnea (adult) (pediatric); F10.21 Alcohol dependence, in remission; Y90.0 Blood alcohol level of less than 20 mg/100 ml; Z87.891 Personal history of nicotine dependence
CPT/HCPCS: 36415; 70450; 70496; 70498; 70553; 71045; 80048; 80053; 80061; 80307; 80320; 83036; 83735; 84100; 84439; 84443; 84484; 85025; 85610; 85730; 87635; 88161; 88172; 88305; 88313; 88341; 88342; 92611; 93005; 93306; 94640; 94762; 97110; 97116; 97161; 97165; 97530; 97802; 99251; 99285; A9575; J7030; J7120; Q9967; A4216; G0463; G0480; J2405; U0003

== ENCOUNTER → 2020-05-17 15:58 | Outpatient (CLI) | payer MEDICARE, SELFPAY ==
[2020-05-08 13:54] VITALS: BMI 25.4
--- NOTE | 2020-05-17 15:00 | PET_ITS ---
EXAMINATION: FDG PET/CT INDICATIONS: A 69-year-old male with history of pulmonary nodularity. COMPARISON EXAMINATION: CT of the chest report dated 04/26/2020 INDEX LESION SIZE SUV INTERPRETATION Mediastinal structures, left infrahilar region 12.3 x 10.8-cm (largest) (frame 176) 18.5 (max) Fulfills quantitative criteria for viable neoplasm Bilateral chest wall, subcutaneous nodules 44.7-mm (largest) (frame 157) 15.8 (max) Fulfills quantitative criteria for viable neoplasm Left lateral, left anterior neck levels III, 21.2-mm (largest) (frame 228) 15.4 (max) Fulfills quantitative criteria for viable neoplasm Abdominal-pelvic retroperitoneum and mesentery, bilateral inguinal soft tissue 54.5-mm (largest) (frame 130) 15.2 (max) Fulfills quantitative criteria for viable neoplasm Appendicular, axial skeletal structures (n=multiple) 14.3 (max) Fulfills quantitative criteria for viable neoplasm TECHNIQUE: Following the intravenous administration of 14.0 mCi of F-18 deoxyglucose via the left hand, multiplanar image acquisitions of the neck, chest, abdomen and pelvis to level of mid thigh, obtained at one hour post radiopharmaceutical administration contemporaneously interpreted with the current CT of the neck, chest, abdomen and pelvis to level of mid thigh, dated 05/17/[address] of the chest report dated 04/26/2020 reveal: SERUM GLUCOSE LEVEL: 91 mg/dl. HEIGHT: 73 inches. WEIGHT: 190 lbs. FINDINGS: 1. Increased glucose metabolism is defined in the pre-subcarinal mediastinum and left infrahilar region generating a calculated maximal standard uptake value of 18.5. The maximal axial diameter of the largest conglomerate metabolic-morphologic abnormality on review of CT of the chest dated 05/17/2020 is 12.3-cm (transverse) x 10.8-cm (AP) extending from the left infrahilar region to the mediastinum. 2. An increase in fluorine labeled GLUCOSE uptake is defined in the bilateral chest wall, left breast, axilla generating a calculated maximal standard uptake value of 15.8. The maximal axial diameter of the largest individual metabolic, morphologic abnormality on review of CT of the chest dated 05/17/2020 is 44.7-mm. 3. Enhanced tracer concentration is observed in the left lateral neck involving level III, left anterior neck involving level IV. The calculated maximal standard uptake value is 15.4. The maximal axial diameter of the largest metabolic, morphologic abnormality on review of CT of the neck dated 05/17/2020 is 21.2-mm (AP). 4. Innumerable foci of increased FDG distribution are manifest in the abdominal-pelvic retroperitoneum and mesentery, the bilateral inguinal lymph node distributions, the right upper abdomen in the distribution of the andrzej-hepatis rendering a calculated maximal standard uptake value of 15.2. The maximal axial diameter of the largest individual metabolic, morphologic abnormality on review of CT of the abdomen and pelvis dated 05/17/2020 is 54.5-mm (AP). 5. Multifocal accentuated radiopharmaceutical concentration is visualized in the appendicular, axial skeletal structures, too many to individually articulate rendering a calculated maximal standard uptake value of 14.3. Several locations demonstrate primarily lytic changes on review of CT of the neck-pelvis dated 05/17/2020. 6. Normal physiologic distribution of the radiopharmaceutical is apparent in the hepatic (1.8) and splenic parenchyma, both renal units, bladder and visualized intestinal tract. Pertinent CT findings are as follows: CHEST: A left hemithorax pleural effusion is non-glucose avid. There is atherosclerotic calcification defined in the thoracic aorta without evidence of dilatation-aneurysm formation. There are no parenchymal densities-nodules defined within the right and left hemithorax with quantitatively significant increased FDG uptake. There is atherosclerotic calcification defined in the thoracic aorta without evidence of dilatation-aneurysm formation. Subtle coronary arterial calcification is observed. Subcentimeter axillary soft tissue is ametabolic. A left hemithorax pleural effusion reveals no evidence of quantitatively significant enhanced FDG uptake. ABDOMEN AND PELVIS: There is atherosclerotic calcification defined in the abdominal aorta without evidence of dilatation-aneurysm formation. Pelvic arterial calcification is defined. A fat containing periumbilical hernia is noted. Dystrophic calcification is manifest in the lower pelvis associated with prostate gland. Bilateral hemipelvic calcifications are demonstrated. SKELETAL: Degenerative changes are noted in the cervical, thoracic and lumbar spine. PET/PET/CT Tumor Base -Thigh Init IMPRESSION: 1. ABNORMAL EXAMINATION INDICATIVE OF MALIGNANT VIABLE NEOPLASM. 2. Increased glucose concentration observed in the mediastinal structures, left infrahilar region fulfills quantitative criteria for viable neoplasm. 3. Enhanced tracer uptake visualized in the bilateral chest wall fulfills quantitative criteria for malignant transformation. 4. The left anterior and lateral neck hypermetabolic foci fulfill quantitative criteria for apparent neoplastic involvement. 5. Abdominal and pelvic retroperitoneal and mesenteric, bilateral inguinal soft tissue densities fulfill quantitative criteria for neoplasia. 6. Appendicular and axial skeletal structures fulfill quantitative criteria for viable presumed osseous metastatic disease. (Zhang et al, Clinical Nuclear Medicine, 29:161, 2004). Electronic Signature Logan Toscano D.O. Accurate Quantification of SUVs for this report are calculated using the exclusive [employer]. Electronically Signed: Logan Toscano DO at 22:41 EDT Tel , Service support ,
== END ==
PROVIDERS: PCP Family Medicine; Referring Provider Internal Medicine Critical Care Medicine; Visit Provider Internal Medicine Critical Care Medicine
DX: R91.8 Other nonspecific abnormal finding of lung field (principal); J98.4 Other disorders of lung; R59.0 Localized enlarged lymph nodes
CPT/HCPCS: 78815; A9552

== ENCOUNTER → 2020-05-20 | Outpatient (CLI) | payer MEDICARE, SELFPAY ==
--- NOTE | 2020-05-20 | IMM_PTH ---
PATIENT: GERSON CRUM LOC: [place] U#:[id number] AGE/SX: 69/M ROOM: RE05/20/[address]: Dr. Ramon Quinn MD : 1950 BED: DIS: 05/20/2020 SPEC #: [id number] RECD: 05/24/20 13:14 STATUS: JUAN PABLO REQ #: [id number] MASON: 05/20/20 00:[address]: Ramon Quinn DEPT: IMMUNOHISTOCHEMISTRY RECD BY: Janette Cardozo ENTERED: 05/24/20 13:16 SP TYPE: IMMUNO OTHR DR: Dr. Mik Whitten MD Tissues: LYMPH NODE BIOPSY Procedures: BCL-6 (add) CD10 (add) CD20 (add) CD23 (add) CD3 (add) CD30 (add) CD43 (add) CD45 (add) CD5 (add) CD79A (add) CK8 (add) CYCLIN (add) KI-67 (add) Vimentin (add) Pankeratin (initial) PHYSICIAN & [address] [address] SPECIMEN INFORMATION: Tissue Source: Left chest lymph node Clinical Info: Enlarged lymph nodes Specimen Number: [id number] CPT code: 33362, 78308 x14 METHODOLOGY: Deparaffinized sections of prefer/formalin-fixed tissue or PAP/DQ stained slides are incubated with monoclonal/polyclonal antibodies/oligonucleotide probes. Localization is made via biotin free immunoperoxidase method. Appropriate controls are performed and reacted as expected. Results on target cell population are indicated in the following table: RESULTS: ANTIBODY / CLONE RESULT AE1-3 (AE1/AE3/PCK26) negative CK8 ([id number]) negative CD3 (PS1) negative CD5 (SP10) negative CD20 (L26) negative CD43 (L60) negative CD45 (RP2/18) negative CD79a (11E3) negative CD10 (56C6) negative CD23 (1B12) negative CD30 (Hari-H2) negative BCL-6 (GA747Q/A8) negative Cyclin D1/BCL-1 (SP4) negative Vimentin (V9) positive Ki-67 (30-9) positive, high, 60-70% These tests were developed and their performance characteristics determined by [facility]. They may not have been cleared or approved by the U.S. Food and Drug Administration. The FDA has determined that such clearance or approval is not necessary. The above immunohistochemical/dualISH markers are ordered and reviewed by the Pathologist. INTERPRETATION: Left chest lymph node, excisional biopsy: High grade malignant neoplasm, favor angiosarcoma. See comment. SJ:erna 06/01/20 Comment: [facility] specimen [facility] for expert opinion and reviewed by Dr. Valencia and above diagnosis is rendered. The complete report is viewable in patient's EMR. Immunohistochemical stains performed here and additional Immunohistochemical stains performed at [facility] supports the above diagnosis. Case has been reviewed in consultation with Dr. Jensen who concurs with the above diagnosis. IDC:AM
[2020-05-20 12:29] VITALS: BMI 24.6
--- NOTE | 2020-05-20 13:20 | LYMN_PTH ---
PATIENT: GERSON CRUM LOC: [place] U#:[id number] AGE/SX: 69/M ROOM: RE05/20/[address]: Dr. Ramon Quinn MD : 1950 BED: DIS: 05/20/2020 SPEC #: [id number] RECD: 05/20/20 14:49 STATUS: JUAN PABLO VIRGIL #: [id number] MASON: 05/20/20 13:[address]: Ramon Quinn DEPT: SURGICAL PATHOLOGY RECD BY: Gerald Egan ENTERED: 05/23/20 07:32 SP TYPE: LYMPH NODE OTHR DR: Dr. Mik Whitten MD Tissues: LYMPH NODE BIOPSY Procedures: Surgery Specimen Level IV HEADER OPERATION: Excision left chest lymph node PRE-OP DIAGNOSIS: Enlarged lymph nodes TISSUE SUBMITTED: Left chest lymph node (fresh in saline) MICROSCOPIC DIAGNOSIS Left chest lymph node, excisional biopsy: High grade malignant neoplasm, favor angiosarcoma. See comment. SJ:erna 06/01/20 COMMENT The specimen is evaluated at the time of touch prep by Dr. Xavier. Immediate Evaluation = Lymph node tissue. The specimen is sent to [facility] for expert opinion and reviewed by Dr. Valencia and above diagnosis is rendered. The complete report is viewable in patient's EMR. Immunohistochemistry ([id number]) performed here and additional immunohistochemical stain performed at [facility] supports the above diagnosis. This case was reviewed and diagnosis discussed with Dr. Ruano on 05/23/20. Case has been reviewed in consultation with Dr. Jensen who concurs with the above diagnosis. IDC:AM MICROSCOPIC DESCRIPTION Slides are reviewed. GROSS DESCRIPTION Received fresh in saline is one container labeled with the patient's name and designated left chest lymph node. The specimen consists of an ovoid piece of ace nodule measuring 1.5 x 1.5 x 1 cm. The specimen is serially sectioned and reveal yellow adipose cut surfaces mixed with fibrous area. Two touch imprints are prepared. A section is submitted for flow cytometry studies. The entire specimen is submitted in one cassette. / NICK:erna 05/23/20 TC:0 CPT: 01756, 03085
== END | disposition home or self-care (01) ==
LOC: LABSPEC 14:56
PROVIDERS: PCP Family Medicine; Referring Provider Surgery; Visit Provider Surgery
DX: R59.0 Localized enlarged lymph nodes (principal)
CPT/HCPCS: 88305; 88341; 88342